=== PATIENT | male | born 1925 | race Caucasian/White ===

== ENCOUNTER 2016-04-30 10:12 | Inpatient (IN) | payer OTHER, MEDICARE ==
[~2016-04-30] VITALS: Ht 182.9 cm; Wt 91.0 kg
[2016-04-30] VITALS (7 sets, daily range): BP systolic 109–134; BP diastolic 57–74; PULSE 70–85; RESP 0–22; TEMP 97.4–98.9; O2SAT 94–98
[~2016-04-30 10:12] MED LIST: CEPH500C3 PO; COUM5TAB PO; DIPY75TA PO; ODANSETRON SL; RANI150T PO; SIMV20TA PO; TRAM50TA PO
[2016-04-30] MEDS ORDERED: SODIUM CHLOR 0.9% 1000 ML INJ 1,000 ML IV SCH (10:16)
[2016-04-30] MEDS ORDERED: PANTOPRAZOLE INJ 80 MG in SODIUM CHLORIDE 0.9% INJ 35 ML IV ONE (10:30)
[2016-04-30] MEDS ORDERED: SODIUM CHLORIDE 0.9% FLUSH 5 ML FLUSH IVF PRN ×3 (10:30)
--- NOTE | 2016-04-30 10:34 | PD ---
HPI Chief Complaint: GI Complaint Time Seen by Provider: 10:25 Travel History International Travel<30 days: No Contact w/Intl Traveler<30days: No Traveled to known affect area: No History of Present Illness HPI Patient is an 89-year-old male who was brought into the emergency department via EMS for evaluation of rectal bleeding. Per EMS report patient has had bright red blood in his stools for approximately the last 2 hours. Patient was brought in from home, there was noted to be in moderate amount of bright red blood in the toilet, patient also had visible blood on his genitals and buttocks. Patient denies any chest pain, shortness of breath, vomiting. He did report weakness and dizziness when he got up. Patient is a poor historian, he is on Coumadin. Son is in route to the hospital at this time. PFSH Past Medical History Hx Anticoagulant Therapy: Yes (Coumadin) Arthritis: Yes Cancer: No High Cholesterol: Yes Cerebrovascular Accident: Yes Diminished Hearing: Yes Endocrine: No GERD: Yes Genitourinary: Yes Hypertension: Yes Immune Disorder: No Implanted Vascular Access Dvce: No Kidney Stones: Yes Neurologic: Yes Psychiatric: No Reproductive: No Respiratory: No Past Surgical History Abdominal Surgery: Yes (APPI) Eye Surgery: Yes (LEFT EYE CATARACT EXTRACT) Genitourinary Surgery: Yes (OPEN RETRIEVAL RENAL CALC.) Joint Replacement: Yes (RIGHT KNEE ) Pacemaker: No Other Surgery: Yes Social History Alcohol Use: No Tobacco Use: No Substance Use: No Allergies-Medications (Allergen,Severity, Reaction): Coded Allergies: No Known Allergies (Unverified , 04/30/16) Reported Meds & Prescriptions Reported Meds & Active Scripts Active Review of Systems ROS Limitations: Hearing Impaired, Poor Historian Except as stated in HPI: all other systems reviewed are Neg Gastrointestinal: Positive: Hematochezia, No: Nausea, Vomiting, Abdominal Pain Neurologic: Positive: Weakness, Dizziness Physical Exam Narrative GENERAL: Well-developed, well-nourished, alert elderly male. Resting comfortably in no acute distress. SKIN: Warm and dry. Visible dried blood on genitals, buttocks, hand. No lesions, lacerations noted. Skin tear to right shoulder appears to be healing HEAD: Atraumatic. Normocephalic. EYES: Pupils equal and round. No scleral icterus. No injection or drainage. ENT: No nasal bleeding or discharge. Mucous membranes pink and moist. NECK: Trachea midline. No JVD. CARDIOVASCULAR: Regular rate and rhythm. No murmur appreciated. RESPIRATORY: No accessory muscle use. Clear to auscultation. Breath sounds equal bilaterally. GASTROINTESTINAL: Abdomen soft, non-tender, nondistended. Hepatic and splenic margins not palpable. Positive bowel sounds, no rebound, no guarding. MUSCULOSKELETAL: No obvious deformities. No clubbing. No cyanosis. No edema. NEUROLOGICAL: Awake and alert. Oriented to self and day and place. No obvious cranial nerve deficits. Motor grossly within normal limits. Normal speech. Hard of hearing PSYCHIATRIC: Appropriate mood and affect; insight and judgment impaired. Data Data Last Documented VS Vital Signs Date Time Temp Pulse Resp B/P Pulse Ox O2 Delivery O2 Flow Rate FiO2 04/30/16 10:23 94 Room Air 04/30/16 10:15 97.9 70 22 112/57 Orders Complete Blood Count With Diff (04/30/16 10:16) Comprehensive Metabolic Panel (04/30/16 10:16) Prothrombin Time / Inr (Pt) (04/30/16 10:16) Act Partial Throm Time (Ptt) (04/30/16 10:16) Type And Screen (04/30/16 10:16) Ecg Monitoring (04/30/16 10:16) Iv Access Insert/Monitor (04/30/16 10:16) Oximetry (04/30/16 10:16) Sodium Chlor 0.9% 1000 Ml Inj (Ns 1000 M (04/30/16 10:16) Sodium Chloride 0.9% Flush (Ns Flush) (04/30/16 10:30) Pantoprazole Inj (Protonix Inj) (04/30/16 10:30) Pantoprazole Inj (Protonix Inj) (04/30/16 10:30) Electrocardiogram (04/30/16 ) Sodium Chloride 0.9% Flush (Ns Flush) (04/30/16 10:30) Red Blood Cells (Rbc) (04/30/16 10:21) Fresh Frozen Plasma (Ffp) (04/30/16 10:21) Sodium Chloride 0.9% Flush (Ns Flush) (04/30/16 10:30) Phytonadione Inj (Vitamin K Inj) (04/30/16 11:45) Admit Order (Ed Use Only) (04/30/16 12:35) Place In Observation (04/30/16 12:35) Vital Signs (Adult) Q4H (04/30/16 12:35) Activity Oob Ad Ginna (04/30/16 12:35) Intake + Output TYLER.QSHIFT (04/30/16 12:35) Diet Clear Liquid (04/30/16 Lunch) Basic Metabolic Panel (Bmp) (05/01/16 06:00) Complete Blood Count With Diff (05/01/16 06:00) Scd Bilateral/Knee High TYLER.QSHIFT (04/30/16 12:35) Vital Signs (Adult) Q4H (04/30/16 12:35) Hgb & Hct (04/30/16 12:35) Hgb & Hct (05/01/16 00:35) Hgb & Hct (05/01/16 12:35) Hgb & Hct (05/02/16 00:35) Hgb & Hct (05/02/16 12:35) Consult Gastroenterology (04/30/16 12:35) Abo/Rh Blood Type (04/30/16 12:35) Labs Laboratory Tests Test 04/30/16 11:00 White Blood Count 11.8 TH/MM3 Red Blood Count 4.16 MIL/MM3 Hemoglobin 13.8 GM/DL Hematocrit 41.6 % Mean Corpuscular Volume 100.0 FL Mean Corpuscular Hemoglobin 33.2 PG Mean Corpuscular Hemoglobin 33.1 % Concent Red Cell Distribution Width 14.0 % Platelet Count 196 TH/MM3 Mean Platelet Volume 7.6 FL Neutrophils (%) (Auto) 78.6 % Lymphocytes (%) (Auto) 11.8 % Monocytes (%) (Auto) 9.4 % Eosinophils (%) (Auto) 0.1 % Basophils (%) (Auto) 0.1 % Neutrophils # (Auto) 9.3 TH/MM3 Lymphocytes # (Auto) 1.4 TH/MM3 Monocytes # (Auto) 1.1 TH/MM3 Eosinophils # (Auto) 0.0 TH/MM3 Basophils # (Auto) 0.0 TH/MM3 CBC Comment AUTO DIFF Differential Total Cells 100 Counted Neutrophils % (Manual) 75 % Band Neutrophils % 2 % Lymphocytes % 7 % Monocytes % 15 % Neutrophils # (Manual) 9.2 TH/MM3 Myelocytes 1 % Differential Comment FINAL DIFF MANUAL Platelet Estimate NORMAL Platelet Morphology Comment NORMAL Acanthocytes OCC Prothrombin Time 13.4 SEC Prothromb Time International 1.2 RATIO Ratio Activated Partial 20.4 SEC Thromboplast Time Sodium Level 138 MEQ/L Potassium Level 4.6 MEQ/L Chloride Level 109 MEQ/L Carbon Dioxide Level 18.3 MEQ/L Anion Gap 11 MEQ/L Blood Urea Nitrogen 38 MG/DL Creatinine 1.33 MG/DL Estimat Glomerular Filtration 51 ML/MIN Rate Random Glucose 143 MG/DL Calcium Level 8.5 MG/DL Total Bilirubin 0.4 MG/DL Aspartate Amino Transf 22 U/L (AST/SGOT) Alanine Aminotransferase 42 U/L (ALT/SGPT) Alkaline Phosphatase 61 U/L Total Protein 6.0 GM/DL Albumin 2.9 GM/DL Blood Type A POSITIVE Antibody Screen NEGATIVE Crossmatch Leukocyte-Reduced Red Blood Cells Blood Bank Comment MDM Medical Decision Making Medical Screen Exam Complete: Yes Emergency Medical Condition: Yes Medical Record Reviewed: Yes Interpretation(s) Vital Signs Date Time Temp Pulse Resp B/P Pulse Ox O2 Delivery O2 Flow Rate FiO2 04/30/16 10:23 94 Room Air 04/30/16 10:15 97.9 70 22 112/57 94 Differential Diagnosis GI bleed versus supratherapeutic INR versus hemorrhoids versus other Narrative Course Patient is an 89-year-old male brought in by home via EMS for evaluation of rectal bleeding. Apparently the bleeding started approximately 8 AM this morning, patient has had bright red blood in his stools, there was visible blood in the toilet as well as on the toilet seat and patient. Patient is alert , his vital signs are stable at this time. Labs and EKG ordered and pending. Patient placed on continuous cardiac rehabilitation program director, continuous pulse oximetry, IV access initiated. Patient given Protonix bolus and started on a Protonix drip. He was also given IV fluids 1 L. EKG shows sinus rhythm with a probable old inferior NH. Rate of 70. CBC shows mildly elevated white count with left shift, Hemoglobin is stable, INR is 1.2 subtherapeutic. BUN/creatinine are slightly elevated. Patient type and crossmatched. Due to oneal rectal bleeding, admission to observe patient is advisable, Dr. Escobedo accepted admission. Diagnosis Primary Impression: GI bleed Qualified Code: K62.5 - Gastrointestinal hemorrhage associated with anorectal source Additional Impression: Subtherapeutic international normalized ratio (INR) Admitting Information Admitting Physician Requests: Observation Condition: Stable Minna Huber Apr 30, 2016 10:34
[2016-04-30 11:23] LABS: AUTOMATED NEUTROPHIL # 9.3 TH/MM3 (1.8-7.7); BASOPHIL % 0.1 % (0.0-2.0); EOSINOPHIL % 0.1 % (0.0-4.0); HEMATOCRIT 41.6 % (39.0-51.0); HEMO FLAGS AUTO DIFF; LYMPH % 11.8 % (9.0-44.0); LYMPHOCYTE # 1.4 TH/MM3 (1.0-4.8); MEAN CORPUSCULAR HEMOGLOBIN 33.2 PG (27.0-34.0); MEAN CORPUSCULAR HGB CONC 33.1 % (32.0-36.0); MONO % 9.4 % (0.0-8.0); NEUT % 78.6 % (16.0-70.0); PLATELET COUNT 196 TH/MM3 (150-450); RED BLOOD COUNT 4.16 MIL/MM3 (4.50-5.90); WHITE BLOOD COUNT 11.8 TH/MM3 (4.0-11.0)
[2016-04-30] MEDS: PANTOPRAZOLE INJ 80 MG in SODIUM CHLORIDE 0.9% INJ 100 ML IV SCH ×2 (11:31→23:17)
[2016-04-30 11:32] LABS: INTERNATIONAL NORMALIZED RATIO 1.2 RATIO; PROTHROMBIN TIME - PATIENT 13.4 SEC (9.8-11.6)
[2016-04-30 11:33] LABS: APTT (PATIENT) 20.4 SEC (24.3-30.1)
[2016-04-30] MEDS ORDERED: PHYTONADIONE INJ 10 MG in SODIUM CHLORIDE 0.9% INJ 50 ML IV ONE (11:45)
[2016-04-30 11:53] LABS: BLOOD UREA NITROGEN 38 MG/DL (7-18); GLOMERULAR FILTRATION RATE 51 ML/MIN (>89)
[2016-04-30 11:54] LABS: ALKALINE PHOSPHATASE 61 U/L (45-117); ALT (GPT) 42 U/L (12-78); ANION GAP 11 MEQ/L (5-15); AST (GOT) 22 U/L (15-37); BICARBONATE 18.3 MEQ/L (21.0-32.0); CHLORIDE 109 MEQ/L (98-107); POTASSIUM 4.6 MEQ/L (3.5-5.1); SODIUM (NA) 138 MEQ/L (136-145); TOTAL BILIRUBIN ADULT 0.4 MG/DL (0.2-1.0)
[2016-04-30 11:55] LABS: ACANTHOCYTES OCC (NORMAL); BANDS 2 % (0-6); MYELOCYTES 1 % (0-0); NEUTROPHIL # MANUAL DIFF 9.2 TH/MM3 (1.8-7.7); PLATELET ESTIMATE SMEAR NORMAL (NORMAL); PLATELET MORPHOLOGY NORMAL (NORMAL); POLYS (SEG NEUTROPHILS) 75 % (16-70); SCAN/DIFF FINAL DIFF MANUAL; WBC DIFF SAMPLE 100
--- NOTE | 2016-04-30 12:32 | EKG ---
Date Performed: 04/30/2016 Time Performed: 10:18:49 PTAGE: 89 years EKG: Sinus rhythm INFERIOR MYOCARDIAL INFARCTION ABNORMAL ECG PREVIOUS TRACING : 04/21/2012 02.56 No significant change from previous tracing noted. DOCTOR: Bruce Schreiber Interpretating Date/Time 04/30/2016 12:32:07
--- NOTE | 2016-04-30 13:18 | PD ---
Data Data Last Documented VS Vital Signs Date Time Temp Pulse Resp B/P Pulse Ox O2 Delivery O2 Flow Rate FiO2 04/30/16 10:23 94 Room Air 04/30/16 10:15 97.9 70 22 112/57 Orders Complete Blood Count With Diff (04/30/16 10:16) Comprehensive Metabolic Panel (04/30/16 10:16) Prothrombin Time / Inr (Pt) (04/30/16 10:16) Act Partial Throm Time (Ptt) (04/30/16 10:16) Type And Screen (04/30/16 10:16) Ecg Monitoring (04/30/16 10:16) Iv Access Insert/Monitor (04/30/16 10:16) Oximetry (04/30/16 10:16) Sodium Chlor 0.9% 1000 Ml Inj (Ns 1000 M (04/30/16 10:16) Sodium Chloride 0.9% Flush (Ns Flush) (04/30/16 10:30) Pantoprazole Inj (Protonix Inj) (04/30/16 10:30) Pantoprazole Inj (Protonix Inj) (04/30/16 10:30) Electrocardiogram (04/30/16 ) Sodium Chloride 0.9% Flush (Ns Flush) (04/30/16 10:30) Red Blood Cells (Rbc) (04/30/16 10:21) Fresh Frozen Plasma (Ffp) (04/30/16 10:21) Sodium Chloride 0.9% Flush (Ns Flush) (04/30/16 10:30) Phytonadione Inj (Vitamin K Inj) (04/30/16 11:45) Admit Order (Ed Use Only) (04/30/16 12:35) Place In Observation (04/30/16 12:35) Vital Signs (Adult) Q4H (04/30/16 12:35) Activity Oob Ad Ginna (04/30/16 12:35) Intake + Output TYLER.QSHIFT (04/30/16 12:35) Diet Clear Liquid (04/30/16 Lunch) Basic Metabolic Panel (Bmp) (05/01/16 06:00) Complete Blood Count With Diff (05/01/16 06:00) Scd Bilateral/Knee High TYLER.QSHIFT (04/30/16 12:35) Vital Signs (Adult) Q4H (04/30/16 12:35) Hgb & Hct (04/30/16 12:35) Hgb & Hct (05/01/16 00:35) Hgb & Hct (05/01/16 12:35) Hgb & Hct (05/02/16 00:35) Hgb & Hct (05/02/16 12:35) Consult Gastroenterology (04/30/16 12:35) Abo/Rh Blood Type (04/30/16 12:35) Labs Laboratory Tests Test 04/30/16 11:00 White Blood Count 11.8 TH/MM3 Red Blood Count 4.16 MIL/MM3 Hemoglobin 13.8 GM/DL Hematocrit 41.6 % Mean Corpuscular Volume 100.0 FL Mean Corpuscular Hemoglobin 33.2 PG Mean Corpuscular Hemoglobin 33.1 % Concent Red Cell Distribution Width 14.0 % Platelet Count 196 TH/MM3 Mean Platelet Volume 7.6 FL Neutrophils (%) (Auto) 78.6 % Lymphocytes (%) (Auto) 11.8 % Monocytes (%) (Auto) 9.4 % Eosinophils (%) (Auto) 0.1 % Basophils (%) (Auto) 0.1 % Neutrophils # (Auto) 9.3 TH/MM3 Lymphocytes # (Auto) 1.4 TH/MM3 Monocytes # (Auto) 1.1 TH/MM3 Eosinophils # (Auto) 0.0 TH/MM3 Basophils # (Auto) 0.0 TH/MM3 CBC Comment AUTO DIFF Differential Total Cells 100 Counted Neutrophils % (Manual) 75 % Band Neutrophils % 2 % Lymphocytes % 7 % Monocytes % 15 % Neutrophils # (Manual) 9.2 TH/MM3 Myelocytes 1 % Differential Comment FINAL DIFF MANUAL Platelet Estimate NORMAL Platelet Morphology Comment NORMAL Acanthocytes OCC Prothrombin Time 13.4 SEC Prothromb Time International 1.2 RATIO Ratio Activated Partial 20.4 SEC Thromboplast Time Sodium Level 138 MEQ/L Potassium Level 4.6 MEQ/L Chloride Level 109 MEQ/L Carbon Dioxide Level 18.3 MEQ/L Anion Gap 11 MEQ/L Blood Urea Nitrogen 38 MG/DL Creatinine 1.33 MG/DL Estimat Glomerular Filtration 51 ML/MIN Rate Random Glucose 143 MG/DL Calcium Level 8.5 MG/DL Total Bilirubin 0.4 MG/DL Aspartate Amino Transf 22 U/L (AST/SGOT) Alanine Aminotransferase 42 U/L (ALT/SGPT) Alkaline Phosphatase 61 U/L Total Protein 6.0 GM/DL Albumin 2.9 GM/DL Blood Type A POSITIVE Antibody Screen NEGATIVE Crossmatch Leukocyte-Reduced Red Blood Cells Blood Bank Comment MDM Supervised Visit with ALLYSSA: Yes Narrative Course The history, exam, and medical decision-making in the associated midlevel provider note were completed with my assistance. I reviewed and agree with the findings presented. I attest that I had a [id number] encounter with the patient on the same day, and personally performed and documented my assessment and findings in the medical record. *My assessment and Findings: This is an 89-year-old male who presents to the emergency department with bright red blood per rectum that started this morning. He has dementia and is not a great historian. His vital signs are all reassuring. He is on Coumadin but his INR is only 1.2. Labs are reassuring. Patient was started on pantoprazole given some evidence of dried brownish material on his face which may be blood. He will be admitted for close observation and GI consultation. I don't think he requires blood at this time but he has been typed and crossed. Velvet Gilbert MD Apr 30, 2016 13:19
[2016-04-30] MEDS ORDERED: COUM2TAB PO (14:02)
[2016-04-30] MEDS ORDERED: COUM1TAB PO (14:02)
[2016-04-30] MEDS ORDERED: SIMV40TA PO (14:02)
[2016-04-30] MEDS ORDERED: OMEP40CA2 PO (14:02)
--- NOTE | 2016-04-30 14:39 | HHI.HP ---
[facility] Henrique Mccann MD Admission Diagnosis GI BLEED Diagnoses: Chief Complaint: Rectal bleeding Travel History International Travel<30 Days: No Contact w/Intl Traveler <30 Da: No Traveled to Known Affected Are: No History of Present Illness This is an 89-year-old male with history of arthritis, CVA on anticoagulation who presented to the hospital after he started having bright red stools today. There was so much bleeding at home which prompted the family to call EMS. Per patient, he probably lost about 6 cups of blood. He denies any diarrhea, abdominal pain, nausea, vomiting, chest pain, shortness of breath, fever or chills. He however had weakness and dizziness or lightheadedness when he gets up. Patient is a poor historian. Per patient, had a colonoscopy about 8 years ago, he does not know the results. Review of Systems ROS Limitations: Poor Historian Past Family Social History Past Medical History Osteoarthritis Degenerative joint disease Hypertension Hyperlipidemia Questionable history of TIA GERD Chronic renal insufficiency Past Surgical History Right knee arthroplasty Reported Medications Omeprazole 40 Mg Cap 80 Mg PO DAILY Coumadin (Warfarin) 1 Mg Tab 1 Mg PO DAILY Coumadin (Warfarin) 2 Mg Tab 2 Mg PO DAILY Simvastatin 40 Mg Tab 40 Mg PO HS Allergies: Coded Allergies: No Known Allergies (Unverified , 04/30/16) Family History No history of colon cancer in the family Social History Smokes a pipe about 1-2 times a day, drinks a can of beer every day. Physical Exam Vital Signs Vital Signs Date Time Temp Pulse Resp B/P Pulse Ox O2 Delivery O2 Flow Rate FiO2 04/30/16 13:30 74 20 115/63 96 Room Air 04/30/16 10:23 94 Room Air 04/30/16 10:15 97.9 70 22 112/57 94 Physical Exam GENERAL: Not in acute distress, well-nourished. HEAD: Atraumatic. Normocephalic. No temporal or scalp tenderness. EYES: PERRL, full EOMs, no jaundice, nonicteric, pink conjunctivae without injection, moist mucosa ENT: Nose without bleeding, purulent drainage.Airway patent. NECK: Trachea midline, no mass, no obvious thyromegaly. CARDIOVASCULAR: Regular rate and rhythm without murmurs, gallops, or rubs. RESPIRATORY: Clear to auscultation with normal respiratory effort. Breath sounds equal bilaterally. No use of accessory muscles of respiration. GASTROINTESTINAL: Abdomen soft, normal bowel sounds, non-tender, nondistended. No hepato-splenomegaly or palpable mass. No guarding. VASHTI and exam deferred. MUSCULOSKELETAL: Extremities without clubbing, cyanosis, or edema. INTEGUMENTARY: Warm and dry, no rash of generalized distribution. NEUROLOGICAL: Awake, alert, oriented 3. No obvious cranial nerve deficits. Moves all 4 extremities. Laboratory Laboratory Tests Test 04/30/16 11:00 White Blood Count 11.8 Red Blood Count 4.16 Hemoglobin 13.8 Hematocrit 41.6 Mean Corpuscular Volume 100.0 Mean Corpuscular Hemoglobin 33.2 Mean Corpuscular Hemoglobin 33.1 Concent Red Cell Distribution Width 14.0 Platelet Count 196 Mean Platelet Volume 7.6 Neutrophils (%) (Auto) 78.6 Lymphocytes (%) (Auto) 11.8 Monocytes (%) (Auto) 9.4 Eosinophils (%) (Auto) 0.1 Basophils (%) (Auto) 0.1 Neutrophils # (Auto) 9.3 Lymphocytes # (Auto) 1.4 Monocytes # (Auto) 1.1 Eosinophils # (Auto) 0.0 Basophils # (Auto) 0.0 CBC Comment AUTO DIFF Differential Total Cells 100 Counted Neutrophils % (Manual) 75 Band Neutrophils % 2 Lymphocytes % 7 Monocytes % 15 Neutrophils # (Manual) 9.2 Myelocytes 1 Differential Comment FINAL DIFF MANUAL Platelet Estimate NORMAL Platelet Morphology Comment NORMAL Acanthocytes OCC Prothrombin Time 13.4 Prothromb Time International 1.2 Ratio Activated Partial 20.4 Thromboplast Time Sodium Level 138 Potassium Level 4.6 Chloride Level 109 Carbon Dioxide Level 18.3 Anion Gap 11 Blood Urea Nitrogen 38 Creatinine 1.33 Estimat Glomerular Filtration 51 Rate Random Glucose 143 Calcium Level 8.5 Total Bilirubin 0.4 Aspartate Amino Transf 22 (AST/SGOT) Alanine Aminotransferase 42 (ALT/SGPT) Alkaline Phosphatase 61 Total Protein 6.0 Albumin 2.9 Blood Type A POSITIVE Antibody Screen NEGATIVE Crossmatch Leukocyte-Reduced Red Blood Cells Blood Bank Comment Result Diagram: 04/30/16 1100 04/30/16 1100 Assessment and Plan Problem List: (1) GI bleed ICD Code: K92.2 Status: Acute Assessment and Plan This is an 89-year-old male with history of CVA and arthritis on anticoagulation presenting with rectal bleeding Likely lower GI bleed- last colonoscopy was 8 years ago, previous records reviewed, likely lower GI bleed, continue intravenous Protonix for now, continue serial hemoglobin every 12 hours, hemoglobin stable at this point, start clear liquid diet, consult GI, not any NSAIDs. Transfuse as needed, type and screen. Hold Coumadin for now, INR is subtherapeutic, status post vitamin K. Dizziness and lightheadedness-likely orthostatic, check orthostatic blood pressure tomorrow, continue IVF for now. Leukocytosis - likely stress-induced secondary to neutrophil demargination vs hemoconcentration. Afebrile. No obvious source of infection. Monitor for now, cont IVF. Acute renal failure-could be secondary to relative hypovolemia 4/hypoxemia from bleed, monitor, IVF as above. DVT prophylaxis: SCDs, logical prophylaxis contraindicated. Problem Qualifiers (1) GI bleed: Qualified Code: K62.5 - Gastrointestinal hemorrhage associated with anorectal source Kelli Escobedo MD Apr 30, 2016 14:39
[2016-04-30 14:56] LABS: HEMATOCRIT 38.8 % (39.0-51.0); REVIEW FLAG FINAL
[2016-04-30] MEDS: SODIUM CHLOR 0.9% 1000 ML INJ 1,000 ML IV SCH (15:37)
--- NOTE | 2016-04-30 15:49 | PD.CONS ---
HPI History of Present Illness This is a 89 year old male with history of arthritis, CVA on anticoagulation who presented to the ED with complaints of acute bright red stools early this morning. States he was in his usual state of health up till today, when he noticed a significant amount of blood in the toilet. He subsequently had a total of 3 bloody stools. He denies any diarrhea, abdominal pain, nausea, vomiting,hematemesis, chest pain, shortness of breath, fever or chills. He reports weakness and dizziness or lightheadedness for long time. Patient is a poor historian. He denies ever having colonoscopy, however, told the attending he had a colonoscopy 8 years ago. . (Marti Pelletier) PFSH Past Medical History Osteoarthritis Degenerative joint disease Hypertension Hyperlipidemia Questionable history of TIA GERD Chronic renal insufficiency Past Surgical History Right knee arthroplasty (Marti Pelletier) Coded Allergies: No Known Allergies (Unverified , 04/30/16) Medications Current Medications Medications (Trade) Dose Ordered Sig/Andrew Route Start Time Stop Time Status Last Admin IV Flush 2 ml 2 ml UNSCH PRN IVF 04/30/16 10:30 (Protonix Inj/NS Inj) 100 ml @ 10 mls/hr Q10H IV 04/30/16 10:30 04/30/16 11:31 (NS Flush) 2 ml UNSCH PRN IVF 04/30/16 10:30 IV Flush 2 ml 2 ml UNSCH PRN IVF 04/30/16 10:30 (NS 1000 ml Inj) 1,000 ml @ 100 mls/hr Q10H IV 04/30/16 15:15 Family History No history of colon cancer in the family Social History Smokes a pipe about 1-2 times a day, drinks a can of beer every day. (Marti Pelletier) Review of Systems Constitutional: COMPLAINS OF: Dizziness, DENIES: Fever, Chills Endocrine: DENIES: Polyuria Eyes: DENIES: Double Vision Ears, nose, mouth, throat: DENIES: Hoarseness Respiratory: COMPLAINS OF: Shortness of breath Cardiovascular: DENIES: Lower Extremity Edema Gastrointestinal: COMPLAINS OF: Bloody stools, DENIES: Abdominal pain, Black stools, Constipation, Diarrhea, Nausea, Vomiting, Difficulty Swallowing, Anorexia, Odynophagia, Swelling of Abdomen, Heartburn, Hematemesis Genitourinary: DENIES: Hematuria Musculoskeletal: DENIES: Back pain Integumentary: DENIES: Jaundice Hematologic/lymphatic: COMPLAINS OF: Bruising Immunologic/allergic: DENIES: Eczema Neurologic: DENIES: Abnormal gait Psychiatric: DENIES: Anxiety (Marti Pelletier) GI Exam Vitals I&O Vital Signs Date Time Temp Pulse Resp B/P Pulse Ox O2 Delivery O2 Flow Rate FiO2 04/30/16 15:00 97.4 72 18 119/64 94 04/30/16 13:30 74 20 115/63 96 Room Air 04/30/16 10:23 94 Room Air 04/30/16 10:15 97.9 70 22 112/57 94 Laboratory Test 04/30/16 04/30/16 11:00 14:46 White Blood Count 11.8 TH/MM3 Red Blood Count 4.16 MIL/MM3 Hemoglobin 13.8 GM/DL 13.0 GM/DL Hematocrit 41.6 % 38.8 % Mean Corpuscular Volume 100.0 FL Mean Corpuscular Hemoglobin 33.2 PG Mean Corpuscular Hemoglobin 33.1 % Concent Red Cell Distribution Width 14.0 % Platelet Count 196 TH/MM3 Mean Platelet Volume 7.6 FL Neutrophils (%) (Auto) 78.6 % Lymphocytes (%) (Auto) 11.8 % Monocytes (%) (Auto) 9.4 % Eosinophils (%) (Auto) 0.1 % Basophils (%) (Auto) 0.1 % Neutrophils # (Auto) 9.3 TH/MM3 Lymphocytes # (Auto) 1.4 TH/MM3 Monocytes # (Auto) 1.1 TH/MM3 Eosinophils # (Auto) 0.0 TH/MM3 Basophils # (Auto) 0.0 TH/MM3 CBC Comment AUTO DIFF Differential Total Cells 100 Counted Neutrophils % (Manual) 75 % Band Neutrophils % 2 % Lymphocytes % 7 % Monocytes % 15 % Neutrophils # (Manual) 9.2 TH/MM3 Myelocytes 1 % Differential Comment FINAL DIFF MANUAL Platelet Estimate NORMAL Platelet Morphology Comment NORMAL Acanthocytes OCC Prothrombin Time 13.4 SEC Prothromb Time International 1.2 RATIO Ratio Activated Partial 20.4 SEC Thromboplast Time Sodium Level 138 MEQ/L Potassium Level 4.6 MEQ/L Chloride Level 109 MEQ/L Carbon Dioxide Level 18.3 MEQ/L Anion Gap 11 MEQ/L Blood Urea Nitrogen 38 MG/DL Creatinine 1.33 MG/DL Estimat Glomerular Filtration 51 ML/MIN Rate Random Glucose 143 MG/DL Calcium Level 8.5 MG/DL Total Bilirubin 0.4 MG/DL Aspartate Amino Transf 22 U/L (AST/SGOT) Alanine Aminotransferase 42 U/L (ALT/SGPT) Alkaline Phosphatase 61 U/L Total Protein 6.0 GM/DL Albumin 2.9 GM/DL Blood Type A POSITIVE Antibody Screen NEGATIVE Crossmatch Leukocyte-Reduced Red Blood Cells Blood Bank Comment Physical Examination HEENT: Pupils round and reactive to light; normocephalic; atraumatic; no jaundice. Throat is clear. NECK: Neck is supple, no JVD, no lymphadenopathy. CHEST: Chest is clear to auscultation and percussion. CARDIAC: Regular rate and rhythm with no murmur gallop or rubs. ABDOMEN: Soft, nondistended, nontender; no hepatosplenomegaly; bowel sounds are present in all four quadrants. EXTREMITIES: No clubbing, cyanosis, or edema. SKIN: ecchymotic; no jaundice. 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 (Marti Pelletier) Assessment and Plan Plan - Lower GI bleed- 3 bloody stools today, chronic use of Coumadin, this is on hold, hgb 13, PPI - Dizziness and lightheadedness- IV fluids per attending - Leukocytosis - likely stress-induced Afebrile. No obvious source of infection. - Acute renal failure-could be secondary to above Plan: - Clear liquids - [facility] NPO mn - Monitor hh - Transfuse as needed - Cont. PPI - Notify Gi for active bleed - Supportive care - Patient seen and examined by Dr. Phoenix and myself and this note is written on his behalf. (Marti Pelletier) Physician Comments Seen and examined, plan as above, will need Colonoscopy while INR subtherapeutic , further recommendations to follow . (Lilian Phoenix MD) Marti Pelletier Apr 30, 2016 15:49 Lilian Phoenix MD Apr 30, 2016 19:27
[2016-04-30] MEDS ORDERED: PEG (High)/E-LYTE SOLN 4000 ML BTL PO ONE (17:00)
[2016-04-30 18:38] LABS: REVIEW FLAG FINAL
[2016-05-01] VITALS (16 sets, daily range): BP systolic 89–131; BP diastolic 30–72; PULSE 79–90; RESP 16–23; TEMP 95.3–97.4; O2SAT 94–98
[2016-05-01 00:30] LABS: HEMATOCRIT 36.2 % (39.0-51.0); REVIEW FLAG FINAL
[2016-05-01] MEDS: SODIUM CHLOR 0.9% 1000 ML INJ 1,000 ML IV SCH ×2 (01:15→13:00)
[2016-05-01] MEDS: LACTATED RINGER'S 1000 ML IV SCH (02:45)
[2016-05-01] MEDS ORDERED: SODIUM CHLOR 0.9% 250 ML INJ 250 ML IV ONE (04:00)
[2016-05-01] MEDS ORDERED: FUROSEMIDE 20 MG/2 ML VIAL IV ONE (04:00)
[2016-05-01 04:37] LABS: AUTOMATED NEUTROPHIL # 6.5 TH/MM3 (1.8-7.7); BASOPHIL % 0.4 % (0.0-2.0); EOSINOPHIL # 0.1 TH/MM3 (0-0.4); EOSINOPHIL % 1.1 % (0.0-4.0); HEMATOCRIT 34.9 % (39.0-51.0); LYMPH % 26.3 % (9.0-44.0); LYMPHOCYTE # 2.9 TH/MM3 (1.0-4.8); MEAN CELL VOLUME 97.7 FL (80.0-100.0); MEAN CORPUSCULAR HEMOGLOBIN 33.2 PG (27.0-34.0); MONO % 13.2 % (0.0-8.0); PLATELET COUNT 219 TH/MM3 (150-450); RED BLOOD COUNT 3.58 MIL/MM3 (4.50-5.90); WHITE BLOOD COUNT 11.1 TH/MM3 (4.0-11.0)
[2016-05-01 04:38] LABS: HEMO FLAGS AUTO DIFF
[2016-05-01 04:59] LABS: BICARBONATE 24.3 MEQ/L (21.0-32.0)
[2016-05-01 05:27] LABS: SCAN/DIFF AUTO DIFF CONFIRMED
[2016-05-01] MEDS: PANTOPRAZOLE INJ 80 MG in SODIUM CHLORIDE 0.9% INJ 100 ML IV SCH ×2 (06:30→16:30)
--- NOTE | 2016-05-01 09:49 | HHI.PR ---
Subjective Remarks Follow-up for GI bleeding. I was paged by RN for massive rectal bleeding. Patient seen, there is a pull of clotted and fresh blood, more than 3 cups from his rectum. Patient is confused but oriented to self and person. Blood pressure systolic in the 130s, tachycardic, patient also had a presyncopal episode which resolved immediately. Patient just finished back red blood cells 1 unit. He denies any abdominal pain. Discussed with son, he'll be taken down to the GI lab emergently for colonoscopy. Per patient's son, patient is on warfarin for DVT 5 years ago after a right knee surgery. He is not aware of any hypercoagulable state. Objective Vitals Vital Signs Date Time Temp Pulse Resp B/P Pulse Ox O2 Delivery O2 Flow Rate FiO2 05/01/16 08:40 95.9 90 16 130/71 94 05/01/16 08:30 95.9 90 18 130/71 05/01/16 07:56 96.4 90 20 102/56 97 05/01/16 07:15 96.6 05/01/16 07:15 96.6 88 20 102/56 97 05/01/16 06:44 95.7 86 18 117/30 95 05/01/16 04:51 97.4 85 18 100/58 96 Automatic Cuff 05/01/16 04:22 95.6 80 20 106/63 98 05/01/16 03:52 95.9 86 18 110/53 97 05/01/16 00:00 97.4 79 18 125/68 96 04/30/16 22:03 98.9 74 18 134/74 98 04/30/16 17:01 85 04/30/16 16:58 73 0 124/65 109/61 04/30/16 15:00 97.4 72 18 119/64 94 04/30/16 13:30 74 20 115/63 96 Room Air 04/30/16 10:23 94 Room Air 04/30/16 10:15 97.9 70 22 112/57 94 I/O 04/30/16 04/30/16 04/30/16 05/01/16 05/01/16 05/01/16 07:00 15:00 23:00 07:00 15:00 23:00 Intake Total 1222 ml Balance 1222 ml Intake Oral 450 ml IV Total 579 ml Packed Cells 193 ml # Voids 7 # Bowel Movements 4 Result Diagram: 05/01/1641005/01/16410 Objective Remarks Not in distress, pale PERRL, pale conjunctiva. Nose without bleeding Supple neck, no masses or thyromegaly, trachea midline Tachycardic, regular rhythm, no murmurs. Clear to auscultation and symmetric bilaterally, normal respiratory effort. Normal bowel sounds, soft, non-tender, nondistended, no guarding. There is a huge pool of clotted and fresh red blood per rectum. Extremities without clubbing, cyanosis, or edema. No rash of generalized distribution. Skin is warm and dry. AAO x place, person, no cranial nerve deficits. No focal deficits but confused. A/P Problem List: (1) GI bleed ICD Code: K92.2 Status: Acute Assessment and Plan This is an 89-year-old male with history of CVA and arthritis on anticoagulation presenting with rectal bleeding Likely lower GI bleed- last colonoscopy was 8 years ago, previous records reviewed, likely lower GI bleed, continue intravenous Protonix for now, GI on board. Patient will be emergently taken down to GI lab for a colonoscopy because of profuse massive bleeding, status post vitamin K. Status post chest fusion 1 unit, transfuse again when patient returns. We'll give fresh frozen plasma. Stop Coumadin indefinitely. Dizziness and lightheadedness-likely orthostatic, check orthostatic blood pressure tomorrow, continue IVF for now. Leukocytosis - likely stress-induced secondary to neutrophil demargination vs hemoconcentration. Afebrile. No obvious source of infection. Monitor for now, cont IVF. Acute renal failure-could be secondary to relative hypovolemia/hypoxemia, resolved. DVT prophylaxis: SCDs, pharmacological prophylaxis contraindicated. Discussed with patient's son and RN. Aggregate critical care time was 35 minutes spent at bedside or in the hospital gtz. Time to perform other separately billable procedures was not included in the critical care time. My time did not include minutes spent treating any other patients simultaneously or on activities that did not directly contribute to the patient's treatment. The services I provided to this patient were to treat and/or prevent clinically significant deterioration that could result in: organ failure, , disability or imminent clinical deterioration in the patient's condition. I provided critical care services requiring my management, as noted below: chart data review, documentation time, medication orders and management, vital sign assessments/reviewing monitor data, ordering and reviewing lab tests, ordering and interpreting/reviewing x-rays and diagnostic studies, care of the patient and discussion with other physicians and caregivers as needed. Problem Qualifiers (1) GI bleed: Qualified Code: K62.5 - Gastrointestinal hemorrhage associated with anorectal source Kelli Escobedo MD May 01, 2016 09:49
[2016-05-01] MEDS ORDERED: PROPOFOL 200 MG/20 ML AMP IV ONE (09:50)
[2016-05-01 16:15] LABS: HEMATOCRIT 32.1 % (39.0-51.0); MEAN CELL VOLUME 96.3 FL (80.0-100.0); MEAN CORPUSCULAR HEMOGLOBIN 32.7 PG (27.0-34.0); PLATELET COUNT 164 TH/MM3 (150-450); RED BLOOD COUNT 3.33 MIL/MM3 (4.50-5.90); RED CELL DISTRIBUTION WIDTH 15.3 % (11.6-17.2); REVIEW FLAG FINAL; WHITE BLOOD COUNT 14.6 TH/MM3 (4.0-11.0)
[2016-05-01 23:39] LABS: HEMATOCRIT 26.3 % (39.0-51.0); REVIEW FLAG FINAL
[2016-05-02] VITALS (11 sets, daily range): BP systolic 92–124; BP diastolic 53–74; PULSE 90–103; RESP 17–22; TEMP 96.3–98.3; O2SAT 92–98
[2016-05-02] MEDS: PANTOPRAZOLE INJ 80 MG in SODIUM CHLORIDE 0.9% INJ 100 ML IV SCH ×3 (02:30→22:42)
[2016-05-02] MEDS: LACTATED RINGER'S 1000 ML IV SCH (02:45)
[2016-05-02] MEDS: SODIUM CHLOR 0.9% 1000 ML INJ 1,000 ML IV SCH ×3 (03:19→18:33)
[2016-05-02 06:34] LABS: HEMATOCRIT 23.9 % (39.0-51.0); MEAN CELL VOLUME 95.3 FL (80.0-100.0); MEAN CORPUSCULAR HEMOGLOBIN 33.4 PG (27.0-34.0); PLATELET COUNT 143 TH/MM3 (150-450); RED BLOOD COUNT 2.51 MIL/MM3 (4.50-5.90); RED CELL DISTRIBUTION WIDTH 14.9 % (11.6-17.2); REVIEW FLAG FINAL; WHITE BLOOD COUNT 9.7 TH/MM3 (4.0-11.0)
[2016-05-02 06:56] LABS: INTERNATIONAL NORMALIZED RATIO 1.1 RATIO; PROTHROMBIN TIME - PATIENT 12.3 SEC (9.8-11.6)
--- NOTE | 2016-05-02 11:06 | HHI.GIFU ---
Subjective Remarks Patient is resting in bed, accompanied by family, reportedly, he had some bloody stools yesterday and this morning, no nausea or vomiting or abd pain. ( Marti Pelletier) Objective Vitals I&O Vital Signs Date Time Temp Pulse Resp B/P Pulse Ox O2 Delivery O2 Flow Rate FiO2 05/02/16 08:00 97.2 91 20 113/55 94 05/02/16 00:00 98.3 103 19 92/53 98 05/01/16 20:00 96.9 87 18 105/54 95 05/01/16 16:00 96.2 88 20 110/56 96 05/01/16 14:53 95.8 85 22 107/58 98 05/01/16 14:15 95.8 85 23 107/58 98 05/01/16 14:10 95.7 86 18 114/59 94 05/01/16 14:00 95.7 86 20 114/59 94 05/01/16 12:00 95.3 86 16 131/72 94 I/O 05/01/16 05/01/16 05/01/16 05/02/16 05/02/16 05/02/16 07:00 15:00 23:00 07:00 15:00 23:00 Intake Total 1222 ml 560 ml 240 ml 240 ml Output Total 300 ml 500 ml 200 ml Balance 1222 ml 260 ml -260 ml 40 ml Intake Oral 450 ml 360 ml 240 ml 240 ml IV Total 579 ml 0 ml Packed Cells 193 ml Other 200 ml Output Urine Total 300 ml 500 ml 200 ml # Voids 7 3 # Bowel Movements 4 5 1 2 Laboratory Laboratory Tests Test 05/01/16 05/01/16 05/02/16 05/02/16 15:54 23:10 05:30 05:50 White Blood Count 14.6 9.7 Red Blood Count 3.33 2.51 Hemoglobin 10.9 9.2 8.4 Hematocrit 32.1 26.3 23.9 Mean Corpuscular Volume 96.3 95.3 Mean Corpuscular Hemoglobin 32.7 33.4 Mean Corpuscular Hemoglobin 34.0 35.0 Concent Red Cell Distribution Width 15.3 14.9 Platelet Count 164 143 Mean Platelet Volume 7.4 7.6 Prothrombin Time 12.3 Prothromb Time International 1.1 Ratio Physical Exam HEENT: Pupils round and reactive to light; normocephalic; atraumatic; no jaundice. Throat is clear. NECK: Neck is supple, no JVD, no lymphadenopathy. CHEST: Chest is clear to auscultation and percussion. CARDIAC: Regular rate and rhythm with no murmur gallop or rubs. ABDOMEN: Soft, nondistended, nontender; no hepatosplenomegaly; bowel sounds are present in all four quadrants. EXTREMITIES: No clubbing, cyanosis, or edema. SKIN: Normal; no rash; no jaundice. CHIEF WHEELAGE CLERK: No focal deficits; alert and oriented times three. (Marti Pelletier) Assessment and Plan Plan - Lower GI bleed- s/p colonoscopy on (05/01/16)----> Diverticulum in the sigmoid colon and descending colon, Medium sized flat polyp in the sigmoid, large flat polyp in the hepatic v flexure, significant amount of blood was found in the sigmoid, descending and transverse, most likely diverticular bleed. Patient cont. to have bleeding episodes, hgb today is 8.4 - Dizziness and lightheadedness- IV fluids per attending - Leukocytosis - Resolved, No obvious source of infection. - Acute renal failure- Improving, could be secondary to above Plan: - full liquids - Await bx - angio gram to JADA - stat hh - Transfuse as needed - Cont. PPI - Notify Gi for active bleed - Supportive care - Patient seen and examined by Dr. Phoenix and myself and this note is written on his behalf. (Marti Pelletier) Physician Comments Seen and examined, plan as above, will check Angio results. (Lilian Phoenix MD) Marti Pelletier May 02, 2016 11:06 Lilian Phoenix MD May 02, 2016 15:15
[2016-05-02 12:42] LABS: HEMATOCRIT 19.9 % (39.0-51.0)
[2016-05-02] MEDS ORDERED: SODIUM CHLOR 0.9% 250 ML INJ 250 ML IV ONE (13:15)
--- NOTE | 2016-05-02 13:27 | HHI.PR ---
Subjective Remarks Follow-up for GI bleeding Patient still having hematochezia and melena, hemoglobin dropped to 6.9. Not short of breath, no chest pain. Afebrile. Also with tea colored urine. Objective Vitals Vital Signs Date Time Temp Pulse Resp B/P Pulse Ox O2 Delivery O2 Flow Rate FiO2 05/02/16 08:00 97.2 91 20 113/55 94 05/02/16 00:00 98.3 103 19 92/53 98 05/01/16 20:00 96.9 87 18 105/54 95 05/01/16 16:00 96.2 88 20 110/56 96 05/01/16 14:53 95.8 85 22 107/58 98 05/01/16 14:15 95.8 85 23 107/58 98 05/01/16 14:10 95.7 86 18 114/59 94 05/01/16 14:00 95.7 86 20 114/59 94 I/O 05/01/16 05/01/16 05/01/16 05/02/16 05/02/16 05/02/16 07:00 15:00 23:00 07:00 15:00 23:00 Intake Total 1222 ml 560 ml 240 ml 240 ml Output Total 300 ml 500 ml 200 ml Balance 1222 ml 260 ml -260 ml 40 ml Intake Oral 450 ml 360 ml 240 ml 240 ml IV Total 579 ml 0 ml Packed Cells 193 ml Other 200 ml Output Urine Total 300 ml 500 ml 200 ml # Voids 7 3 # Bowel Movements 4 5 1 2 Result Diagram: 05/02/16 1208 05/01/16 0411 Objective Remarks Not in distress, pale PERRL, pale conjunctiva. Nose without bleeding Supple neck, no masses or thyromegaly, trachea midline Tachycardic, regular rhythm, no murmurs. Clear to auscultation and symmetric bilaterally, normal respiratory effort. Normal bowel sounds, soft, non-tender, nondistended, no guarding. Still with hematochezia and fresh blood per rectum. Extremities without clubbing, cyanosis, or edema. No rash of generalized distribution. Skin is warm and dry. AAO x place, person, no cranial nerve deficits. No focal deficits but confused. A/P Problem List: (1) GI bleed ICD Code: K92.2 Status: Acute Assessment and Plan This is an 89-year-old male with history of CVA and arthritis on anticoagulation presenting with rectal bleeding Likely lower GI bleed - last colonoscopy was 8 years ago, previous records reviewed, likely lower GI bleed, continue intravenous Protonix for now, GI on board. Status post colonoscopy, showed bleeding polyps, diverticulosis. Still having hematochezia and melena.For angiogram today, possible diverticular bleed. Hemoglobin 6.9, transfuse 2 more units of packed red blood cells. Tea-colored urine - send UA, recheck LFTs. Dizziness and lightheadedness-likely orthostatic, check orthostatic blood pressure tomorrow, continue IVF for now. Leukocytosis - likely stress-induced secondary to neutrophil demargination vs hemoconcentration. Afebrile. No obvious source of infection. Monitor for now, cont IVF. Acute renal failure-could be secondary to relative hypovolemia/hypoxemia, resolved. DVT prophylaxis: SCDs, pharmacological prophylaxis contraindicated. PT evaluation tomorrow. Discharge Planning SNF vs [facility] Problem Qualifiers (1) GI bleed: Qualified Code: K62.5 - Gastrointestinal hemorrhage associated with anorectal source Kelli Escobedo MD May 02, 2016 13:27
[2016-05-02] MEDS ORDERED: MIDAZOLAM HCL 5 MG/5 ML VIAL ONE (14:26)
[2016-05-02] MEDS ORDERED: fentaNYL CITRATE 250 MCG/5 ML AMP ONE (14:26)
--- NOTE | 2016-05-02 15:31 | PD.RAD ---
Post Procedure Progress Note Pre Procedure Diagnosis: (1) GI bleed Post Procedure Diagnosis: (1) GI bleed Procedure Date: May 02, 2016 Supervising Radiologist: Adrian Ortiz Proceduralist/Assist: Fernanda Borrego RT(R), Teetee White RT(R)() Anesthesia: Local, Analgesia, Conscious Sedation Plan of Activity Patient to Unit: ROPU Patient Condition: Good See PACS Report for procedural detail/treatment Vascular-Arterial Procedure Procedure 1 Procedure Site: Superior Mesenteric Artery (and JADA) Procedure(s): Angiogram Access Access Site(s): Right Femoral Artery Closure Site(s): Right vascular closure device Findings: No bleed identified in SMA or JADA territories Adrian Ortiz MD May 02, 2016 15:31
[2016-05-02] MEDS ORDERED: IODIXANOL 320 MG/ML 50 ML VIAL (for RAD SPEC) I-ARTERIAL ONE (15:39)
[2016-05-02 23:33] LABS: HEMATOCRIT 29.5 % (39.0-51.0); REVIEW FLAG FINAL
[2016-05-02 23:37] LABS: BLOOD, URINE TRACE (NEG); COMMENT (UR) CULT NOT INDICATED; CULTURE IF INDICATED CULT NOT INDICATED; GLUCOSE,URINE TRACE mg/dL (NEG); KETONE, URINE NEG (NEG); MUCUS URINE FEW /lpf (OCC); NITRITE,URINE NEG (NEG); SQUAMOUS EPITHELIAL CELL URINE <1 /hpf (0-5); URINE COLOR YELLOW (YELLW/STRAW)
[2016-05-03] VITALS (12 sets, daily range): BP systolic 100–144; BP diastolic 55–73; PULSE 83–102; RESP 16–22; TEMP 96.7–98.3; O2SAT 92–97
[2016-05-03] MEDS: LACTATED RINGER'S 1000 ML IV SCH (02:45)
[2016-05-03 05:27] LABS: HEMATOCRIT 26.3 % (39.0-51.0); REVIEW FLAG FINAL
[2016-05-03 05:50] LABS: BICARBONATE 21.2 MEQ/L (21.0-32.0); POTASSIUM 4.1 MEQ/L (3.5-5.1)
[2016-05-03 05:53] LABS: INDIRECT BILIRUBIN 0.8 MG/DL (0.0-0.8); TOTAL BILIRUBIN ADULT 1.2 MG/DL (0.2-1.0)
[2016-05-03] MEDS: SODIUM CHLOR 0.9% 1000 ML INJ 1,000 ML IV SCH ×2 (07:25→11:57)
[2016-05-03] MEDS: PANTOPRAZOLE INJ 80 MG in SODIUM CHLORIDE 0.9% INJ 100 ML IV SCH (08:57)
--- NOTE | 2016-05-03 11:03 | HHI.PR ---
Subjective Remarks Called into room by RN Patient just had a large episode of hematochezia denies nausea or abdominal pain denies dizziness denies cp/sob Objective Vitals Vital Signs Date Time Temp Pulse Resp B/P Pulse Ox O2 Delivery O2 Flow Rate FiO2 05/03/16 08:00 98.0 102 18 100/59 97 05/03/16 04:00 96.7 90 20 105/58 94 05/03/16 00:00 98.3 95 22 112/63 93 05/02/16 20:00 96.6 97 22 113/67 93 05/02/16 19:40 97.1 97 18 101/61 93 05/02/16 17:44 93 18 104/64 94 05/02/16 17:14 90 17 101/74 94 05/02/16 16:44 92 18 99/60 94 05/02/16 16:44 97.7 95 17 99/60 95 05/02/16 16:14 90 19 120/63 95 05/02/16 16:14 97.7 90 17 120/63 95 05/02/16 15:59 92 19 117/57 92 05/02/16 15:44 97.7 90 18 124/64 97 05/02/16 12:30 96.3 91 17 103/58 96 I/O 05/02/16 05/02/16 05/02/16 05/03/16 05/03/16 05/03/16 07:00 15:00 23:00 07:00 15:00 23:00 Intake Total 240 ml 1290 ml 912 ml 0 ml Output Total 200 ml 150 ml 225 ml Balance 40 ml 1140 ml 912 ml -225 ml Intake Oral 240 ml 700 ml 320 ml 0 ml IV Total 590 ml 592 ml Output Urine Total 200 ml 150 ml 225 ml # Voids 0 # Bowel Movements 2 3 1 1 Result Diagram: 05/03/16 0446 05/03/166 Objective Remarks GENERAL: This is a well-nourished, well-developed patient, in no apparent distress. SKIN: No rashes, ecchymoses or lesions. Cool and dry. Pale skin. HEAD: Atraumatic. Normocephalic. No temporal or scalp tenderness. EYES: Pupils equal round and reactive. Extraocular motions intact. No scleral icterus. No injection or drainage. ENT: Nose without bleeding, purulent drainage or septal hematoma. Throat without erythema, tonsillar hypertrophy or exudate. Uvula midline. Airway patent. NECK: Trachea midline. No JVD or lymphadenopathy. Supple, nontender, no meningeal signs. CARDIOVASCULAR: Regular rate and rhythm without murmurs, gallops, or rubs. RESPIRATORY: Clear to auscultation. Breath sounds equal bilaterally. No wheezes , rales, or rhonchi. GASTROINTESTINAL: Abdomen soft, non-tender, nondistended. No hepato-splenomegaly , or palpable masses. No guarding. Hyperactive bowel sounds. MUSCULOSKELETAL: Extremities without clubbing, cyanosis, or edema. No joint tenderness, effusion, or edema noted. No calf tenderness. Negative Homans sign bilaterally. NEUROLOGICAL: Awake and alert. Cranial nerves II through XII intact. Motor and sensory grossly within normal limits. Five out of 5 muscle strength in all muscle groups. Normal speech. hard of hearing. Procedures Colonoscopy on 05/01/16 - showed diverticulosis, hepatic flexure lesion, sigmoid polyp Abdominal angiogram on 05/02/16 which did not show any bleeding in the SMA, JADA territories. Medications and IVs Current Medications Medications (Trade) Dose Ordered Sig/Andrew Route Start Time Stop Time Status Last Admin IV Flush 2 ml 2 ml UNSCH PRN IVF 04/30/16 10:30 (Protonix Inj/NS Inj) 100 ml @ 10 mls/hr Q10H IV 04/30/16 10:30 05/03/16 08:57 (NS Flush) 2 ml UNSCH PRN IVF 04/30/16 10:30 IV Flush 2 ml 2 ml UNSCH PRN IVF 04/30/16 10:30 Sodium Chloride 1,000 ml @ 100 mls/hr Q10H IV 04/30/16 15:15 05/03/16 07:25 (Lr 1000 ml Inj) 1,000 ml @ 30 mls/hr Q24H IV 05/01/16 02:45 A/P Problem List: (1) GI bleed ICD Code: K92.2 Status: Acute Plan: This is an 89-year-old male with history of CVA and arthritis on chronic undergo ablation presenting with rectal bleeding. Likely lower GI bleed. Patient had colonoscopy 8 years ago. Patient initially treated with IV Protonix, GI consulted. Patient status post colonoscopy which showed bleeding polyps, diverticulosis. Patient had angiogram on 05/02 due to persistent melena and hematochezia which did not show any active bleeding from the SMA and JADA territories. Status post transfusion of 2 units of proper blood cells after hemoglobin was 6.9. Patient with active bleeding, I will transfuse 1 units of packed red blood cells now, and continue to monitor hemoglobin every 6 hours. Continue to monitor hemoglobin/hematocrit and transfuse when necessary for hemoglobin less than 9 if active bleeding or hemoglobin less than 7 if there is no active bleeding. Hemoglobin goal more than 9. Continue to monitor hemoglobin every 6 hours. Follow-up GI recommendations. - Made Don ontiveros aware of hematochezia. Place 2 large bore IV access - Discussed with RN Given that patient has gotten 2 units in the past and I will give a third one. I will give 2 g of IV calcium chloride and 1 unit of FFP. (2) Dizziness ICD Code: R42 Status: Acute Plan: Likely due to hypotension secondary to GI bleed. Patient has had hypotension with blood pressure of 99/60 on 05/02/16, continue IV fluids for now. Also continue to monitor vital signs. I will order an orthostatic blood pressure today. (3) Leukocytosis ICD Code: D72.829 Status: Acute Plan: Leukocytosis likely stress induced to be possibly due to no traveled to margination versus hemoconcentration. The patient has been afebrile without any obvious source of infection. WBC has trended down and would not 0.7 on 05/02/16. (4) BRITTNEY (acute kidney injury) ICD Code: N17.9 Status: Acute Plan: Patient initially with a creatinine of 1.33 and a GFR of 51. BRITTNEY have resolved after IV fluid administration, now with creatinine of 0.9. (5) Hyperglycemia ICD Code: R73.9 Status: Acute Plan: No previous history of diabetes. Check hemoglobin A1c. Place on SSI with insulin NovoLog and Accu-Cheks. (6) Hyperlipidemia ICD Code: E78.5 Status: Chronic Plan: Check fasting lipid profile. I will resume statin as soon as GI bleed has been controlled. (7) HTN (hypertension) ICD Code: I10 Status: Chronic Plan: As per history, the patient has had history of hypertension. Patient's blood pressure for now seems to be stable on the lower side. Continue IV fluids and continue to monitor vital signs. (8) Hypotension ICD Code: I95.9 Status: Acute Plan: Due to hypovolemia. Patient had decreased blood pressure 99/60 on . Continue IV fluids for now due to monitor vital signs. (9) H/O: CVA (cerebrovascular accident) ICD Code: Z86.73 Status: Chronic Plan: Patient has history of CVA and was on chronic anticoagulation with Coumadin. Hold Coumadin due to GI bleed. Assessment and Plan GI prophylaxis: Patient on Protonix drip. DVT prophylaxis: SCDs, chemotherapy prophylaxis contraindicated due to high bleeding risk. Discharge Planning If patient becomes hypotensive or unstable then will transfer to intensive care unit. Problem Qualifiers (1) GI bleed: Qualified Code: K62.5 - Gastrointestinal hemorrhage associated with anorectal source (2) Hypotension: Qualified Code: I95.9 - Hypotension, unspecified hypotension type Harvey Mohr MD May 03, 2016 11:03
[2016-05-03] MEDS ORDERED: SODIUM CHLOR 0.9% 250 ML INJ 250 ML IV ONE (11:15)
[2016-05-03] MEDS ORDERED: ACETAMINOPHEN 325 MG TAB PO PRN (11:15)
[2016-05-03] MEDS ORDERED: diphenhydrAMINE HCL 25 MG CAP PO PRN (11:15)
[2016-05-03] MEDS ORDERED: FUROSEMIDE 20 MG/2 ML VIAL IV ONE (11:30)
--- NOTE | 2016-05-03 12:18 | HHI.GIFU ---
Subjective Remarks Called to floor for active bleeding. Moderate to large amount of red blood with blood clots. Pt denies any nausea/vomiting. Denies abdominal pain. Nurse reports that he continued to have bleeding overnight and this episode this morning. (Nicolette Valderrama) Objective Vitals I&O Vital Signs Date Time Temp Pulse Resp B/P Pulse Ox O2 Delivery O2 Flow Rate FiO2 05/03/16 08:00 98.0 102 18 100/59 97 05/03/16 04:00 96.7 90 20 105/58 94 05/03/16 00:00 98.3 95 22 112/63 93 05/02/16 20:00 96.6 97 22 113/67 93 05/02/16 19:40 97.1 97 18 101/61 93 05/02/16 17:44 93 18 104/64 94 05/02/16 17:14 90 17 101/74 94 05/02/16 16:44 92 18 99/60 94 05/02/16 16:44 97.7 95 17 99/60 95 05/02/16 16:14 90 19 120/63 95 05/02/16 16:14 97.7 90 17 120/63 95 05/02/16 15:59 92 19 117/57 92 05/02/16 15:44 97.7 90 18 124/64 97 05/02/16 12:30 96.3 91 17 103/58 96 I/O 05/02/16 05/02/16 05/02/16 05/03/16 05/03/16 05/03/16 06:59 14:59 22:59 06:59 14:59 22:59 Intake Total 240 ml 1290 ml 912 ml 0 ml 423 ml Output Total 200 ml 150 ml 225 ml Balance 40 ml 1140 ml 912 ml -225 ml 423 ml Intake Oral 240 ml 700 ml 320 ml 0 ml IV Total 590 ml 592 ml 423 ml Output Urine Total 200 ml 150 ml 225 ml # Voids 0 # Bowel Movements 2 3 1 1 Laboratory Laboratory Tests Test 05/02/16 05/02/16 05/02/16 05/03/16 13:44 23:07 23:20 04:46 Blood Type A POSITIVE Crossmatch Leukocyte-Reduced Red Blood Cells Blood Bank Comment Hemoglobin 10.2 9.1 Hematocrit 29.5 26.3 Urine Color YELLOW Urine Turbidity CLEAR Urine pH 5.0 Urine Specific [place] GREATER THAN 1.050 Urine Protein TRACE Urine Glucose (UA) TRACE Urine Ketones NEG Urine Occult Blood TRACE Urine Nitrite NEG Urine Bilirubin NEG Urine Urobilinogen LESS THAN 2.0 Urine Leukocyte Esterase TRACE Urine RBC LESS THAN 1 Urine WBC 3 Urine Squamous Epithelial <1 Cells Urine Mucus FEW Microscopic Urinalysis Comment CULT NOT INDICATED Sodium Level 141 Potassium Level 4.1 Chloride Level 110 Carbon Dioxide Level 21.2 Anion Gap 10 Blood Urea Nitrogen 26 Creatinine 0.91 Estimat Glomerular Filtration 78 Rate Random Glucose 147 Calcium Level 7.5 Total Bilirubin 1.2 Direct Bilirubin 0.4 Indirect Bilirubin 0.8 Aspartate Amino Transf 9 (AST/SGOT) Alanine Aminotransferase 22 (ALT/SGPT) Alkaline Phosphatase 44 Total Protein 4.4 Albumin 2.2 Test 05/03/16 11:46 Blood Bank Comment Physical Exam HEENT: Normocephalic; atraumatic; no jaundice. CHEST: CTA CARDIAC: RRR ABDOMEN: Soft, nondistended, nontender; no hepatosplenomegaly; bowel sounds are present in all four quadrants. EXTREMITIES: No clubbing, cyanosis, or edema. SKIN: Multiple ecchymotic areas HUMAN RESOURCES DEPARTMENT SUPERVISOR: No focal deficits; alert and oriented times three. (Nicolette Valderrama [facility]) Assessment and Plan Plan ASSESSMENT: - Lower GI bleed- s/p colonoscopy on (05/01/16)----> Diverticulum in the sigmoid colon and descending colon, Medium sized flat polyp in the sigmoid, large flat polyp in the hepatic v flexure, significant amount of blood was found in the sigmoid, descending and transverse, most likely diverticular bleed. Pathology with multiple fragments of tubular adenoma, sigmoid colon tubular adenoma. Pt has continued to have intermittent rectal bleeding. Went for angiogram yesterday in IR (05/02/16)----> no bleeding identified in SMA or JADA territories. Called to floor for active bleeding. Moderate to large amount of red blood with blood clots. Pt denies any nausea/ vomiting/pain. Nurse reports that he continued to have bleeding overnight and this episode this morning. VSS 103/55, HR 102. No obvious distress. HH 9.1/26.3. INR 1.1. Stat Bleeding scan ordered. Stat HH. NPO for now. - Leukocytosis - Resolved, No obvious source of infection. - Acute renal failure- Improving, could be secondary to above Plan: - NPO for now - Stat Bleeding Scan - Stat H/H - Transfuse as needed - Change protonix gtt to BID dosing - Notify Gi for active bleed - Supportive care - Patient seen and examined by Dr. Phoenix and myself and this note is written on his behalf. (Nicolette Valderrama) Physician Comments Agree with the plan as above, will follow up with you. (Lilian Phoenix MD) Nicolette Valderrama May 03, 2016 12:18 Lilian Phoenix MD May 03, 2016 17:23
[2016-05-03] MEDS ORDERED: CALCIUM CHLORIDE INJ 2 GM in SODIUM CHLORIDE 0.9% INJ 100 ML IV ONE (13:00)
[2016-05-03 13:51] LABS: HEMOGLOBIN A1a 1.6 %; HEMOGLOBIN Ao 83.6 %; HEMOGLOBIN F 1.2 %; HEMOGLOBIN LA1C 2.3 %; HEMOGLOBIN P3 4.2 %
--- NOTE | 2016-05-03 15:21 | RADRPT ---
EXAM DATE/TIME: 05/03/2016 13:03 [place] COMPARISON: No previous studies available for comparison. INDICATIONS : Active GI bleed with large amounts of blood in stool. DOSE: 22 mCi Tc99m Ultratag labeled red blood cells IV IMAGIN hrs MEDICAL HISTORY : Hypertension. Hypercholesterolemia. GERD SURGICAL HISTORY : Total knee replacement, right. Appendectomy. Circumcision. ENCOUNTER: Initial ACUITY: 1 day PAIN SCALE: 0/10 LOCATION: GI bleed TECHNIQUE: Following the modified in vitro labeling of autologous red cells, dynamic continuous images were acqu ired for the specified interval. FINDINGS: BIODISTRIBUTION: There is a very good labeling of red cells without significant uptake in the gastric wall. There is good delineation of the blood pool of the spleen and abdominal vessels. BLEEDING: No episodes of active GI bleeding are observed during specified interval of continuous observation. CONCLUSION: Unremarkable GI bleeding scan. Ulisses Briscoe MD on May 03, 2016 at 15:17 Board Certified Radiologist. This report was verified electronically.
[2016-05-03] MEDS: PANTOPRAZOLE SODIUM 40 MG VIAL IV PUSH SCH (15:32)
--- NOTE | 2016-05-03 15:57 | RADRPT ---
EXAM DATE/TIME: 05/02/2016 14:05 [place] COMPARISON: No previous studies available for comparison. INDICATIONS : Patient is in need of a mesenteric angiogram for evaluation of GI bleed. MEDICAL HISTORY : History of diverticulosis, chronic renal insufficiency, HTN, TIA, hyperlipidemia, CHF, PAD, dyslipide emil. SURGICAL HISTORY : History of right knee arthroplasty, colonoscopy with biopsy. ENCOUNTER: Initial ACUITY: 2 days PAIN SCORE: 0/10 FLUORO TIME: 6.2 minutes ACCESS SITE: Right Femoral artery SEDATION TIME: 60 minutes CONTRAST: 1.) 120 cc Visipaque (iodixanol) MEDICATION(S): 1.) 1 mg midazolam (Versed) IV 2.) 50 mcg fentanyl (Sublimaze) IV DEVICE(S): 1.) Right common femoral artery 6Fr Angio-Seal PROCEDURE : 1. Ultrasound-guided puncture of the access site. 2. Angiography of the access site prior to closure device. 3. Conscious sedation with continuous EKG and Oximetry monitoring. 4. Percutaneous closure of the access site. 5. Angiography of the SMA 6. Angiography of the JADA The risks, benefits and alternatives to the procedure were explained and verbal and written consent w as obtained. The site was prepped in sterile fashion. Full sterile technique was used, including ca p, mask, sterile gloves and gown and a large sterile sheet. Hand hygiene and 2% chlorhexidine and/or betadine/alcohol prep was utilized per protocol for cutaneous antisepsis. The skin and subcutaneous tissues were infiltrated with local anesthetic solution. With ultrasound and fluoroscopic guidance the selected artery was punctured and a vascular sheath was placed. Angiography of the common femoral artery was performed for evaluation prior to percutaneous closure device placement. Flush catheter run was performed of the infrarenal aorta shows mild atherosclerotic irregularity with out aneurysmal disease. The JADA cannot be identified, however. Therefore, a lateral image was obtaine d which showed a far anterior takeoff of the JADA. Catheter was exchanged for a focal sheath used to s elect the ostium of the JADA. Spot images of the upper, mid and lower segments of the JADA showed some hyperemia in the region of the sigmoid but no findings of active hemorrhage. The catheter was then used to select the SMA. Again, selective angiography of the SMA did not show ac tive hemorrhage in this vascular distribution. Hemostasis was obtained with the prescribed medicated closure device. Conscious sedation was perform ed with the prescribed dosages and duration as above. EKG and oximetry remained stable throughout th e procedure. The patient was sent to post anesthesia recovery in stable condition. CONCLUSION: 1. Hyperemia in the sigmoid region of the JADA with no findings of active hemorrhage in either the JADA or SMA. 2. Mild atherosclerotic irregularity of the infrarenal abdominal aorta without aneurysmal disease. Adrian Ortiz MD on May 03, 2016 at 14:47 Board Certified Radiologist. This report was verified electronically.
[2016-05-03 18:52] LABS: HEMATOCRIT 23.1 % (39.0-51.0); MEAN CELL VOLUME 94.8 FL (80.0-100.0); MEAN CORPUSCULAR HEMOGLOBIN 32.5 PG (27.0-34.0); MEAN CORPUSCULAR HGB CONC 34.2 % (32.0-36.0); PLATELET COUNT 114 TH/MM3 (150-450); RED BLOOD COUNT 2.44 MIL/MM3 (4.50-5.90); RED CELL DISTRIBUTION WIDTH 16.4 % (11.6-17.2); REVIEW FLAG FINAL; WHITE BLOOD COUNT 18.2 TH/MM3 (4.0-11.0)
[2016-05-04] VITALS (8 sets, daily range): BP systolic 112–136; BP diastolic 55–63; PULSE 62–83; RESP 16–22; TEMP 96–98; O2SAT 92–98
[2016-05-04] MEDS: LACTATED RINGER'S 1000 ML IV SCH ×2 (01:35→23:46)
[2016-05-04] MEDS: PANTOPRAZOLE SODIUM 40 MG VIAL IV PUSH SCH ×3 (01:35→23:46)
[2016-05-04] MEDS: SODIUM CHLOR 0.9% 1000 ML INJ 1,000 ML IV SCH ×3 (01:36→17:21)
[2016-05-04 02:57] LABS: HEMATOCRIT 24.9 % (39.0-51.0); REVIEW FLAG FINAL
[2016-05-04 04:31] LABS: AUTOMATED NEUTROPHIL # 8.6 TH/MM3 (1.8-7.7); BASOPHIL % 0.2 % (0.0-2.0); EOSINOPHIL # 0.3 TH/MM3 (0-0.4); EOSINOPHIL % 2.2 % (0.0-4.0); HEMATOCRIT 24.7 % (39.0-51.0); HEMO FLAGS DIFF FINAL; LYMPH % 12.2 % (9.0-44.0); LYMPHOCYTE # 1.5 TH/MM3 (1.0-4.8); MEAN CELL VOLUME 89.9 FL (80.0-100.0); MEAN CORPUSCULAR HEMOGLOBIN 31.3 PG (27.0-34.0); MEAN CORPUSCULAR HGB CONC 34.8 % (32.0-36.0); MONO % 12.8 % (0.0-8.0); NEUT % 72.6 % (16.0-70.0); PLATELET COUNT 111 TH/MM3 (150-450); RED BLOOD COUNT 2.75 MIL/MM3 (4.50-5.90); RED CELL DISTRIBUTION WIDTH 18.6 % (11.6-17.2); WHITE BLOOD COUNT 11.9 TH/MM3 (4.0-11.0)
[2016-05-04 04:46] LABS: ALT (GPT) 19 U/L (12-78); ANION GAP 9 MEQ/L (5-15); AST (GOT) 10 U/L (15-37); BICARBONATE 24.6 MEQ/L (21.0-32.0); BLOOD UREA NITROGEN 25 MG/DL (7-18); CHLORIDE 109 MEQ/L (98-107); GLOMERULAR FILTRATION RATE 70 ML/MIN (>89); MAGNESIUM 1.6 MG/DL (1.5-2.5); POTASSIUM 3.9 MEQ/L (3.5-5.1); SODIUM (NA) 143 MEQ/L (136-145)
[2016-05-04 04:49] LABS: ALKALINE PHOSPHATASE 42 U/L (45-117); HDL CHOLESTEROL 31.6 MG/DL (40.0-60.0); LDL CHOLESTEROL 27 MG/DL (0-99); TOTAL BILIRUBIN ADULT 1.3 MG/DL (0.2-1.0)
--- NOTE | 2016-05-04 11:08 | HHI.PR ---
Subjective Remarks fu hematemesis. blood loss anemia Patient denies cp/sob denies nausea/vomiting as per RN had small amount of hematochezia last night but none today hemoglobin stable 8.8 --> 8.6 Objective Vitals Vital Signs Date Time Temp Pulse Resp B/P Pulse Ox O2 Delivery O2 Flow Rate FiO2 05/04/16 08:00 97.1 66 22 132/63 94 05/04/16 00:10 97.9 83 18 112/55 96 05/04/16 00:00 97.9 79 18 112/55 96 05/03/16 21:02 97.3 83 22 125/60 94 05/03/16 21:01 97.3 83 22 125/60 94 05/03/16 20:00 97.8 83 18 113/55 94 05/03/16 18:18 97.7 83 18 144/73 95 05/03/16 17:50 97.4 92 16 116/59 92 05/03/16 16:14 97.9 85 18 144/64 93 05/03/16 16:00 97.6 90 18 110/55 92 05/03/16 15:56 97.6 90 18 110/55 92 05/03/16 12:00 97.5 101 17 103/55 94 I/O 05/03/16 05/03/16 05/03/16 05/04/16 05/04/16 05/04/16 07:00 15:00 23:00 07:00 15:00 23:00 Intake Total 0 ml 423 ml 0 ml 0 ml 0 ml Output Total 225 ml 550 ml 400 ml 300 ml Balance -225 ml 423 ml -550 ml -400 ml -300 ml Intake Oral 0 ml 0 ml 0 ml 0 ml IV Total 423 ml Output Urine Total 225 ml 550 ml 400 ml 300 ml # Bowel Movements 1 1 0 Result Diagram: 05/04/16 0328 05/04/16 0328 Imaging Last Impressions GI Bleed Scan Nuclear Medicine 05/03/16 0000 Signed Impressions: Service Date/Time: April 13:03 - CONCLUSION: Unremarkable GI bleeding scan. Ulisses Briscoe MD Abdomen Arteriogram 05/02/16 0000 Signed Impressions: Service Date/Time: Monday, May 02, 2016 14:05 - CONCLUSION: 1. Hyperemia in the sigmoid region of the JADA with no findings of active hemorrhage in either the JADA or SMA. 2. Mild atherosclerotic irregularity of the infrarenal abdominal aorta without aneurysmal disease. Adrian Ortiz MD Objective Remarks GENERAL: This is a well-nourished, well-developed patient, in no apparent distress. SKIN: No rashes, ecchymoses or lesions. Cool and dry. Pale skin. HEAD: Atraumatic. Normocephalic. No temporal or scalp tenderness. EYES: Pupils equal round and reactive. Extraocular motions intact. No scleral icterus. No injection or drainage. ENT: Nose without bleeding, purulent drainage or septal hematoma. Throat without erythema, tonsillar hypertrophy or exudate. Uvula midline. Airway patent. NECK: Trachea midline. No JVD or lymphadenopathy. Supple, nontender, no meningeal signs. CARDIOVASCULAR: Regular rate and rhythm without murmurs, gallops, or rubs. RESPIRATORY: Clear to auscultation. Breath sounds equal bilaterally. No wheezes , rales, or rhonchi. GASTROINTESTINAL: Abdomen soft, non-tender, nondistended. No hepato-splenomegaly , or palpable masses. No guarding. Bowel sounds present and normoactive. MUSCULOSKELETAL: Extremities without clubbing, cyanosis, or edema. No joint tenderness, effusion, or edema noted. No calf tenderness. Negative Homans sign bilaterally. NEUROLOGICAL: Awake and alert. Cranial nerves II through XII intact. Motor and sensory grossly within normal limits. Five out of 5 muscle strength in all muscle groups. Normal speech. hard of hearing. Procedures Colonoscopy on 05/01/16 - showed diverticulosis, hepatic flexure lesion, sigmoid polyp Abdominal angiogram on 05/02/16 which did not show any bleeding in the SMA, JADA territories. Medications and IVs Current Medications Medications (Trade) Dose Ordered Sig/Andrew Route Start Time Stop Time Status Last Admin (NS Flush) 2 ml UNSCH PRN IVF 04/30/16 10:30 (NS Flush) 2 ml UNSCH PRN IVF 04/30/16 10:30 IV Flush 2 ml 2 ml UNSCH PRN IVF 04/30/16 10:30 Sodium Chloride 1,000 ml @ 100 mls/hr Q10H IV 04/30/16 15:15 05/04/16 07:56 (Lr 1000 ml Inj) 1,000 ml @ 30 mls/hr Q24H IV 05/01/16 02:45 (Protonix Inj) 40 mg Q12H IV PUSH 05/03/16 12:30 05/04/16 01:35 Urinary Catheter: No Vascular Central Line Catheter: No A/P Problem List: (1) GI bleed ICD Code: K92.2 Status: Acute (2) Dizziness ICD Code: R42 Status: Acute (3) Leukocytosis ICD Code: D72.829 Status: Acute (4) BRITTNEY (acute kidney injury) ICD Code: N17.9 Status: Acute (5) Hyperglycemia ICD Code: R73.9 Status: Acute (6) Hyperlipidemia ICD Code: E78.5 Status: Chronic (7) HTN (hypertension) ICD Code: I10 Status: Chronic (8) Hypotension ICD Code: I95.9 Status: Acute (9) H/O: CVA (cerebrovascular accident) ICD Code: Z86.73 Status: Chronic Assessment and Plan (1) GI bleed Plan: This is an 89-year-old male with history of CVA and arthritis on chronic undergo ablation presenting with rectal bleeding. Likely lower GI bleed. Patient had colonoscopy 8 years ago. Patient initially treated with IV Protonix, GI consulted. Patient status post colonoscopy which showed bleeding polyps, diverticulosis. Patient had angiogram on 05/02 due to persistent melena and hematochezia which did not show any active bleeding from the SMA and JADA territories. Status post transfusion of 2 units of proper blood cells after hemoglobin was 6.9. Patient still with active bleeding on 05/03 1 for bleeding scan which was unremarkable. Patient is status post fusion 1 unit of packed red blood cells with appropriate response of hemoglobin up to 8.8 and this morning 8.6. It seems that hemoglobin has been somewhat stable and as per RN report the patient has not had any more episodes of hematochezia this morning. Patient is also status post fusion of 1 unit of FFP and 2 g of IV calcium chloride. Follow-up GI recommendations, the patient might need a colorectal surgery consult for possible colostomy if the patient continues to bleed. No further hematochezia for now. Continue to monitor and follow up hemoglobin every 6 hours. (2) Dizziness Plan: Likely due to hypotension secondary to GI bleed. Patient has had hypotension with blood pressure of 99/60 on 05/02/16, treated with IV fluids. 05/04 dizziness resolved. Hypotension also resolved. (3) Leukocytosis Plan: Leukocytosis likely stress induced to be possibly due to no traveled to margination versus hemoconcentration. The patient has been afebrile without any obvious source of infection. WBC trending down. Continue to monitor CBC with differential. (4) BRITTNEY (acute kidney injury) Plan: Patient initially with a creatinine of 1.33 and a GFR of 51. BRITTNEY have resolved after IV fluid administration, now with creatinine of 0.9. Creatinine was up to 1. her one today. Continue to monitor BUN/creatinine and continue the fluids. (5) Hyperglycemia Plan: No previous history of diabetes. Hemoglobin A1c 5.9. Continue SSI with insulin NovoLog and Accu-Cheks. (6) Hyperlipidemia Plan: Check fasting lipid profile. I will resume statin as soon as GI bleed has been controlled. (7) HTN (hypertension) Plan: As per medical records, the patient has had history of hypertension. Patient's blood pressure though on 05/03. Better today. (8) Hypotension Plan: Due to hypovolemia. Patient had decreased blood pressure 99/60 on . Continue IV fluids for now due to monitor vital signs. 05/04 BP much improved. Continue IV fluids. (9) H/O: CVA (cerebrovascular accident) Plan: Patient has history of CVA and was on chronic anticoagulation with Coumadin. Hold Coumadin due to GI bleed. GI prophylaxis: Patient on Protonix drip. DVT prophylaxis: SCDs, chemotherapy prophylaxis contraindicated due to high bleeding risk. Discharge Planning If patient becomes hypotensive or unstable then will transfer to intensive care unit. Problem Qualifiers (1) GI bleed: Qualified Code: K62.5 - Gastrointestinal hemorrhage associated with anorectal source (2) Hypotension: Qualified Code: I95.9 - Hypotension, unspecified hypotension type Harvey Mohr MD May 04, 2016 11:08
[2016-05-04] MEDS ORDERED: SODIUM CHLOR 0.9% 250 ML INJ 250 ML IV ONE (12:00)
[2016-05-04] MEDS ORDERED: diphenhydrAMINE HCL 25 MG CAP PO PRN (12:00)
[2016-05-04] MEDS ORDERED: ACETAMINOPHEN 325 MG TAB PO PRN (12:00)
[2016-05-04 14:26] LABS: HEMATOCRIT 22.5 % (39.0-51.0); REVIEW FLAG FINAL
--- NOTE | 2016-05-04 15:51 | HHI.GIFU ---
Subjective Remarks Had several bowel movements with blood fresh and old mainly last night, non today. Objective Vitals I&O Vital Signs Date Time Temp Pulse Resp B/P Pulse Ox O2 Delivery O2 Flow Rate FiO2 05/04/16 14:49 96.0 66 16 114/57 98 05/04/16 14:46 96.0 70 16 118/58 92 05/04/16 11:45 97.0 72 18 136/63 92 05/04/16 08:00 97.1 66 22 132/63 94 05/04/16 00:10 97.9 83 18 112/55 96 05/04/16 00:00 97.9 79 18 112/55 96 05/03/16 21:02 97.3 83 22 125/60 94 05/03/16 21:01 97.3 83 22 125/60 94 05/03/16 20:00 97.8 83 18 113/55 94 05/03/16 18:18 97.7 83 18 144/73 95 05/03/16 17:50 97.4 92 16 116/59 92 05/03/16 16:14 97.9 85 18 144/64 93 05/03/16 16:00 97.6 90 18 110/55 92 05/03/16 15:56 97.6 90 18 110/55 92 I/O 05/03/16 05/03/16 05/03/16 05/04/16 05/04/16 05/04/16 07:00 15:00 23:00 07:00 15:00 23:00 Intake Total 0 ml 423 ml 0 ml 0 ml 0 ml Output Total 225 ml 550 ml 400 ml 800 ml Balance -225 ml 423 ml -550 ml -400 ml -800 ml Intake Oral 0 ml 0 ml 0 ml 0 ml IV Total 423 ml Output Urine Total 225 ml 550 ml 400 ml 500 ml Estimated Blood Loss 300 ml # Bowel Movements 1 1 0 Laboratory Laboratory Tests Test 05/03/16 05/03/16 05/04/16 05/04/16 18:29 18:37 02:38 03:28 Blood Type A POSITIVE Crossmatch Leukocyte-Reduced Red Blood Cells Blood Bank Comment White Blood Count 18.2 11.9 Red Blood Count 2.44 2.75 Hemoglobin 7.9 8.8 8.6 Hematocrit 23.1 24.9 24.7 Mean Corpuscular Volume 94.8 89.9 Mean Corpuscular Hemoglobin 32.5 31.3 Mean Corpuscular Hemoglobin 34.2 34.8 Concent Red Cell Distribution Width 16.4 18.6 Platelet Count 114 111 Mean Platelet Volume 7.9 8.0 Neutrophils (%) (Auto) 72.6 Lymphocytes (%) (Auto) 12.2 Monocytes (%) (Auto) 12.8 Eosinophils (%) (Auto) 2.2 Basophils (%) (Auto) 0.2 Neutrophils # (Auto) 8.6 Lymphocytes # (Auto) 1.5 Monocytes # (Auto) 1.5 Eosinophils # (Auto) 0.3 Basophils # (Auto) 0.0 CBC Comment DIFF FINAL Differential Comment Sodium Level 143 Potassium Level 3.9 Chloride Level 109 Carbon Dioxide Level 24.6 Anion Gap 9 Blood Urea Nitrogen 25 Creatinine 1.01 Estimat Glomerular Filtration 70 Rate Random Glucose 147 Calcium Level 8.0 Phosphorus Level 3.4 Magnesium Level 1.6 Total Bilirubin 1.3 Aspartate Amino Transf 10 (AST/SGOT) Alanine Aminotransferase 19 (ALT/SGPT) Alkaline Phosphatase 42 Total Protein 4.3 Albumin 2.1 Triglycerides Level 96 Cholesterol Level 78 LDL Cholesterol 27 HDL Cholesterol 31.6 Cholesterol/HDL Ratio 2.46 Test 05/04/16 05/04/16 11:56 14:00 Blood Type A POSITIVE Crossmatch Leukocyte-Reduced Red Blood Cells Blood Bank Comment Hemoglobin 7.9 Hematocrit 22.5 Physical Exam HEENT: Normocephalic; atraumatic; no jaundice. CHEST: CTA CARDIAC: RRR ABDOMEN: Soft, nondistended, nontender; no hepatosplenomegaly; bowel sounds are present in all four quadrants. EXTREMITIES: No clubbing, cyanosis, or edema. SKIN: Multiple ecchymotic areas CUT PRESSMAN: No focal deficits; alert and oriented times three. Assessment and Plan Plan ASSESSMENT: - Lower GI bleed- s/p colonoscopy on (05/01/16)----> Diverticulum in the sigmoid colon and descending colon,significant amount of blood was found in the sigmoid, descending and transverse, most likely diverticular bleed Pt has continued to have intermittent rectal bleeding. angiogram yesterday in IR (05/02/16)----> no bleeding identified, bleeding scans negative twice , no active bleeding now but if bleeding recur to consider CR surgery for Colectomy -. Medium sized flat polyp in the sigmoid, large flat polyp in the hepatic flexure. Pathology with multiple fragments of tubular adenoma, sigmoid colon tubular adenoma - Acute renal failure- Improving, could be secondary to above Plan: - Clear liquid diet - Follow H/H - Transfuse as needed - Change protonix gtt to BID dosing - Notify Gi for active bleed - CR surgery if bleeding persists - Supportive care . Lilian Phoenix MD May 04, 2016 15:51
[2016-05-05] VITALS (9 sets, daily range): BP systolic 101–130; BP diastolic 51–60; PULSE 73–88; RESP 16–20; TEMP 96–97.9; O2SAT 93–97
[2016-05-05] MEDS: SODIUM CHLOR 0.9% 1000 ML INJ 1,000 ML IV SCH ×2 (04:54→14:44)
--- NOTE | 2016-05-05 08:11 | HHI.PR ---
Subjective Remarks LGI Bleed 2-3 episodes of dark blood overnight, H/H pending Objective Vital Signs Date Time Temp Pulse Resp B/P Pulse Ox O2 Delivery O2 Flow Rate FiO2 05/05/16 00:00 96.0 76 20 106/52 96 05/04/16 20:00 96.0 62 19 122/58 95 05/04/16 16:00 96.8 78 20 116/55 95 05/04/16 14:49 96.0 66 16 114/57 98 05/04/16 14:46 96.0 70 16 118/58 92 05/04/16 11:45 97.0 72 18 136/63 92 I/O 05/04/16 05/04/16 05/04/16 05/05/16 05/05/16 05/05/16 07:00 15:00 23:00 07:00 15:00 23:00 Intake Total 0 ml 763 ml 0 ml 240 ml Output Total 400 ml 800 ml 600 ml 200 ml Balance -400 ml -37 ml -600 ml 40 ml Intake Oral 0 ml 0 ml 0 ml 240 ml IV Total 763 ml Output Urine Total 400 ml 500 ml 600 ml 200 ml Estimated Blood Loss 300 ml # Voids 1 1 # Bowel Movements 0 2 3 Result Diagram: 05/04/16 1400 05/04/16 0328 Objective Remarks Abdomen benign Assessment and Plan Assessment and Plan LGI Bleed - consult dictated Although initial bleed most likely diverticular, current bleeding could be either a recurrence of the initial problem, or bleeding from his polypectomy/ biopsy sites. As no definitive site has been identified, if surgery becomes necessary, the most appropriate procedure would be a subtotal colectomy. With his age this would be high risk. I will discuss further with medical team and his son. Janet Kc MD May 05, 2016 08:11
--- NOTE | 2016-05-05 09:32 | HHI.GIFU ---
Subjective Remarks Had two small bloody BMs overnight, but otherwise asymptomatic. Objective Vitals I&O Vital Signs Date Time Temp Pulse Resp B/P Pulse Ox O2 Delivery O2 Flow Rate FiO2 05/05/16 08:00 96.8 85 18 108/58 97 05/05/16 00:00 96.0 76 20 106/52 96 05/04/16 20:00 96.0 62 19 122/58 95 05/04/16 16:00 96.8 78 20 116/55 95 05/04/16 14:49 96.0 66 16 114/57 98 05/04/16 14:46 96.0 70 16 118/58 92 05/04/16 11:45 97.0 72 18 136/63 92 I/O 05/04/16 05/04/16 05/04/16 05/05/16 05/05/16 05/05/16 06:59 14:59 22:59 06:59 14:59 22:59 Intake Total 0 ml 763 ml 0 ml 240 ml Output Total 400 ml 800 ml 600 ml 200 ml Balance -400 ml -37 ml -600 ml 40 ml Intake Oral 0 ml 0 ml 0 ml 240 ml IV Total 763 ml Output Urine Total 400 ml 500 ml 600 ml 200 ml Estimated Blood Loss 300 ml # Voids 1 1 # Bowel Movements 0 2 3 Laboratory Laboratory Tests Test 05/04/16 05/04/16 11:56 14:00 Blood Type A POSITIVE Crossmatch Leukocyte-Reduced Red Blood Cells Blood Bank Comment Hemoglobin 7.9 Hematocrit 22.5 Physical Exam HEENT: Normocephalic; atraumatic; no jaundice. CHEST: CTA CARDIAC: RRR ABDOMEN: Soft, nondistended, nontender; no hepatosplenomegaly; bowel sounds are present in all four quadrants. EXTREMITIES: No clubbing, cyanosis, or edema. SKIN: Multiple ecchymotic areas DIGITAL INTERN: No focal deficits; alert and oriented times three. Assessment and Plan Plan ASSESSMENT: - Lower GI bleed- s/p colonoscopy on (05/01/16)----> Diverticulum in the sigmoid colon and descending colon,significant amount of blood was found in the sigmoid, descending and transverse, most likely diverticular bleed Pt has continued to have intermittent rectal bleeding. angiogram yesterday in IR (05/02/16)----> no bleeding identified, bleeding scans negative twice , no active bleeding now but if bleeding recur to consider CR surgery for Colectomy -. Medium sized flat polyp in the sigmoid, large flat polyp in the hepatic flexure. Pathology with multiple fragments of tubular adenoma, sigmoid colon tubular adenoma - Acute renal failure- Improving, could be secondary to above Plan: - Clear liquid diet - Follow H/H - Transfuse as needed - Change protonix gtt to BID dosing - Notify Gi for active bleed - CR surgery if bleeding persists - Supportive care . Lilian Phoenix MD May 05, 2016 09:31
--- NOTE | 2016-05-05 10:28 | MB ---
cc: HOMER CONTRERAS M.D. DATE OF CONSULTATION: 05/05/2016 REASON FOR CONSULTATION: Lower GI bleeding. HISTORY OF PRESENT ILLNESS The patient is an 89-year-old male who came to the hospital on the 30 of April, six days prior to this consultation. He came in with fairly profuse rectal bleeding. He does have a history of having been on Coumadin, for a possible history of transient ischemic attack. He is a very poor historian, and has no idea why he is on Coumadin. He denies however, any history of a TIA or stroke. He began having heavy bleeding, and came to the emergency room. He underwent tagged red blood cell scan and angiography, both of which were negative. He then underwent colonoscopy on the , with fresh blood noted in the distal transverse, descending, and sigmoid colon. He was also noted to have polyps at the hepatic flexure and the sigmoid, which were biopsied multiple times. He has continued to have intermittent bleeding. He has had a transfusion of 5 units of blood and two liters of fresh frozen plasma, during this hospitalization. On admission, his PT was 13.4, INR of 1.2 and PTT was 20.4. On initial evaluation in the emergency room, his hemoglobin was 13.8, dropped to petros of 6.9 on the and has settled out yesterday at 8.6 at 03:30 in the morning and 7.9 at 2 o'clock in the afternoon. The patient denies any abdominal pain. He denies any previous rectal bleeding. He does have some mild soreness in the anal area. He states his normal bowel movements are daily with soft but formed stool. He reports fairly good control. He denies any family history of colon or rectal cancer or polyps, but as noted before he is a poor historian. PAST MEDICAL HISTORY: 1. Hypertension 2. Gastroesophageal reflux disease. 3. Chronic renal insufficiency. 4. Possible history of TIA. 5. Osteoarthritis and degenerative joint disease PAST SURGICAL HISTORY Right knee arthroplasty. ALLERGIES NO KNOWN DRUG ALLERGIES. MEDICATIONS ON ADMISSION Included 1. Omeprazole. 2. Coumadin. 3. Simvastatin SOCIAL HISTORY The patient continues to smoke and has smoked throughout his life, he smokes a pipe three times per day and drinks one can of beer daily. PHYSICAL EXAMINATION: Physical exam reveals an alert male who appears comfortable. NEUROLOGIC: Neuro is grossly intact. SKIN: Skin is warm and dry. HEAD, EYES, EARS, NOSE, AND THROAT: Head is normocephalic, atraumatic. CARDIOVASCULAR SYSTEM: Regular rate. CHEST: The breathing is symmetric bilaterally and nonlabored. ABDOMEN: Soft, nontender, nondistended. EXTREMITIES: Reveal trace edema. ANUS: Anal exam patient is has large amounts of stool with dark red blood. LABORATORY FINDINGS: The laboratory work for today is not available as yet. IMPRESSION Lower GI bleed. The patient initially came in with what sounded like a diverticular bleed and has required 5 units of packed red blood cells. However, on his colonoscopy five days ago he had multiple biopsies of two different sessile polyps. It is difficult to know currently whether the bleeding is coming from his original diverticular bleed or if this is more related to his recent multiple biopsies. I discussed with the patient the possibly of resection. Unfortunately with no definitive source identified on any of the studies he would need a minimum a full left colectomy and more appropriately a subtotal colectomy, which would leave him with fairly poor bowel function in light of his age. In addition, in light of his age, he has a fairly high risk for surgery in total. He is not certain that he is willing to go forward with surgery. I believe, factoring in his recent biopsies 5 or 6 days ago, watching for another 24 hours may be the most appropriate course of action. I will discuss the situation further with his son when he is available later today, as well as his medical doctors. Thank you very much for this kind referral. MD GARTH Moe/lara /7:59 AM /9:41 AM TER[facility]
[2016-05-05] MEDS: PANTOPRAZOLE SODIUM 40 MG VIAL IV PUSH SCH (11:23)
[2016-05-05 13:26] LABS: BICARBONATE 17.1 MEQ/L (21.0-32.0); CALCIUM-PROTEIN CORRECTED 9.2 MG/DL (8.5-10.1); POTASSIUM 4.5 MEQ/L (3.5-5.1); TOTAL BILIRUBIN ADULT 1.3 MG/DL (0.2-1.0)
[2016-05-05 13:36] LABS: HEMATOCRIT 21.4 % (39.0-51.0); MEAN CORPUSCULAR HEMOGLOBIN 30.9 PG (27.0-34.0); MEAN CORPUSCULAR HGB CONC 33.6 % (32.0-36.0); PLATELET COUNT 126 TH/MM3 (150-450); RED BLOOD COUNT 2.33 MIL/MM3 (4.50-5.90); RED CELL DISTRIBUTION WIDTH 18.5 % (11.6-17.2); WHITE BLOOD COUNT 13.9 TH/MM3 (4.0-11.0)
[2016-05-05 13:38] LABS: HEMO FLAGS AUTO DIFF
[2016-05-05 14:08] LABS: CORRECTED NUCLEATED RBC 2 /100 WBC (0-0); EOSINOPHILS 1 % (0-4); METAMYELOCYTES 1 % (0-1); NEUTROPHIL # MANUAL DIFF 10.4 TH/MM3 (1.8-7.7); PLATELET ESTIMATE SMEAR LOW (NORMAL); PLATELET MORPHOLOGY NORMAL (NORMAL); POLYCHROMASIA 2.2 % (0.0-1.9); POLYS (SEG NEUTROPHILS) 74 % (16-70); SCAN/DIFF FINAL DIFF MANUAL; WBC DIFF SAMPLE 100
[2016-05-05] MEDS ORDERED: SODIUM CHLOR 0.9% 250 ML INJ 250 ML IV ONE (16:45)
[2016-05-05] MEDS ORDERED: diphenhydrAMINE HCL 25 MG CAP PO PRN (16:45)
[2016-05-05] MEDS ORDERED: ACETAMINOPHEN 325 MG TAB PO PRN (16:45)
[2016-05-05] MEDS ORDERED: FUROSEMIDE 20 MG/2 ML VIAL IV ONE (16:45)
--- NOTE | 2016-05-05 16:46 | HHI.PR ---
Subjective Remarks Patient still having hematochezia had 6 episodes today denies cp/sob denies abdominal pain denies nausea/vomiting vital signs stable Objective Vitals Vital Signs Date Time Temp Pulse Resp B/P Pulse Ox O2 Delivery O2 Flow Rate FiO2 05/05/16 16:00 97.5 83 18 104/53 96 05/05/16 12:00 96.3 88 18 106/55 93 05/05/16 08:00 96.8 85 18 108/58 97 05/05/16 00:00 96.0 76 20 106/52 96 05/04/16 20:00 96.0 62 19 122/58 95 I/O 05/04/16 05/04/16 05/04/16 05/05/16 05/05/16 05/05/16 07:00 15:00 23:00 07:00 15:00 23:00 Intake Total 0 ml 763 ml 0 ml 240 ml 2334 ml Output Total 400 ml 800 ml 600 ml 200 ml 4 ml Balance -400 ml -37 ml -600 ml 40 ml 2330 ml Intake Oral 0 ml 0 ml 0 ml 240 ml IV Total 763 ml 2334 ml Output Urine Total 400 ml 500 ml 600 ml 200 ml 4 ml Estimated Blood Loss 300 ml # Voids 1 1 # Bowel Movements 0 2 3 3 Result Diagram: 05/05/16 1237 05/05/16 1237 Imaging Last Impressions GI Bleed Scan Nuclear Medicine 05/03/16 0000 Signed Impressions: Service Date/Time: April 13:03 - CONCLUSION: Unremarkable GI bleeding scan. Ulisses Briscoe MD Abdomen Arteriogram 05/02/16 0000 Signed Impressions: Service Date/Time: Monday, May 02, 2016 14:05 - CONCLUSION: 1. Hyperemia in the sigmoid region of the JADA with no findings of active hemorrhage in either the JADA or SMA. 2. Mild atherosclerotic irregularity of the infrarenal abdominal aorta without aneurysmal disease. Adrian Ortiz MD Objective Remarks GENERAL: This is a well-nourished, well-developed patient, in no apparent distress. SKIN: No rashes, ecchymoses or lesions. Cool and dry. Pale skin. HEAD: Atraumatic. Normocephalic. No temporal or scalp tenderness. EYES: Pupils equal round and reactive. Extraocular motions intact. No scleral icterus. No injection or drainage. ENT: Nose without bleeding, purulent drainage or septal hematoma. Throat without erythema, tonsillar hypertrophy or exudate. Uvula midline. Airway patent. NECK: Trachea midline. No JVD or lymphadenopathy. Supple, nontender, no meningeal signs. CARDIOVASCULAR: Regular rate and rhythm without murmurs, gallops, or rubs. RESPIRATORY: Clear to auscultation. Breath sounds equal bilaterally. No wheezes , rales, or rhonchi. GASTROINTESTINAL: Abdomen soft, non-tender, nondistended. No hepato-splenomegaly , or palpable masses. No guarding. Bowel sounds present and normoactive. MUSCULOSKELETAL: Extremities without clubbing, cyanosis, or edema. No joint tenderness, effusion, or edema noted. No calf tenderness. Negative Homans sign bilaterally. NEUROLOGICAL: Awake and alert. Cranial nerves II through XII intact. Motor and sensory grossly within normal limits. Five out of 5 muscle strength in all muscle groups. Normal speech. hard of hearing. Procedures Colonoscopy on 05/01/16 - showed diverticulosis, hepatic flexure lesion, sigmoid polyp Abdominal angiogram on 05/02/16 which did not show any bleeding in the SMA, JADA territories. Medications and IVs Current Medications Medications (Trade) Dose Ordered Sig/Andrew Route Start Time Stop Time Status Last Admin (NS Flush) 2 ml UNSCH PRN IVF 04/30/16 10:30 (NS Flush) 2 ml UNSCH PRN IVF 04/30/16 10:30 IV Flush 2 ml 2 ml UNSCH PRN IVF 04/30/16 10:30 Sodium Chloride 1,000 ml @ 100 mls/hr Q10H IV 04/30/16 15:15 05/05/16 14:44 (Lr 1000 ml Inj) 1,000 ml @ 30 mls/hr Q24H IV 05/01/16 02:45 Pantoprazole Sodium 40 mg 40 mg Q12H IV PUSH 05/03/16 12:30 05/05/16 11:23 (NS 250 ml Inj) 250 ml @ 15 mls/hr ONCE ONCE IV 05/05/16 16:45 05/06/16 09:24 (Tylenol) 650 mg Q4H PRN PO 05/05/16 16:45 05/05/16 20:46 (Benadryl) 25 mg Q4H PRN PO 05/05/16 16:45 05/05/16 20:46 Urinary Catheter: No Vascular Central Line Catheter: No A/P Problem List: (1) GI bleed ICD Code: K92.2 Status: Acute (2) Dizziness ICD Code: R42 Status: Acute (3) Leukocytosis ICD Code: D72.829 Status: Acute (4) BRITTNEY (acute kidney injury) ICD Code: N17.9 Status: Acute (5) Hyperglycemia ICD Code: R73.9 Status: Acute (6) Hyperlipidemia ICD Code: E78.5 Status: Chronic (7) HTN (hypertension) ICD Code: I10 Status: Chronic (8) Hypotension ICD Code: I95.9 Status: Acute (9) H/O: CVA (cerebrovascular accident) ICD Code: Z86.73 Status: Chronic Assessment and Plan (1) GI bleed Plan: This is an 89-year-old male with history of CVA and arthritis on chronic undergo ablation presenting with rectal bleeding. Likely lower GI bleed. Patient had colonoscopy 8 years ago. Patient initially treated with IV Protonix, GI consulted. Patient status post colonoscopy which showed bleeding polyps, diverticulosis. Patient had angiogram on 05/02 due to persistent melena and hematochezia which did not show any active bleeding from the SMA and JADA territories. Status post transfusion of 2 units of proper blood cells after hemoglobin was 6.9. Patient still with active bleeding on 05/03 1 for bleeding scan which was unremarkable. Patient is status post fusion 1 unit of packed red blood cells with appropriate response of hemoglobin up to 8.8 and this morning 8.6. It seems that hemoglobin has been somewhat stable and as per RN report the patient has not had any more episodes of hematochezia this morning. Patient is also status post fusion of 1 unit of FFP and 2 g of IV calcium chloride. 05/05 patient evaluated by colorectal surgery. Patient will likely need a full colectomy. At this time patient does not want medical through with surgery and patient is at high risk. The plan is to wait and see if the patient would stop bleeding. Continue to monitor hemoglobin. Hemoglobin has been trending down on 07.2. Transfuse 2 units of packed red blood cells. (2) Dizziness Plan: Likely due to hypotension secondary to GI bleed. Patient has had hypotension with blood pressure of 99/60 on 05/02/16, treated with IV fluids. 05/04 dizziness resolved. Hypotension also resolved. (3) Leukocytosis Plan: Leukocytosis likely stress induced to be possibly due to no traveled to [place] versus hemoconcentration. The patient has been afebrile without any obvious source of infection. WBC trending down. Continue to monitor CBC with differential. 05/05 WBC trending up. Continue to monitor cc with differential. No signs of active infection. Likely secondary to stress due to active bleeding. (4) BRITTNEY (acute kidney injury) Plan: Patient initially with a creatinine of 1.33 and a GFR of 51. BRITTNEY have resolved after IV fluid administration, now with creatinine of 0.9. Resolved after IV fluid and nutrition. (5) Hyperglycemia Plan: No previous history of diabetes. Hemoglobin A1c 5.9. Continue SSI with insulin NovoLog and Accu-Cheks. (6) Hyperlipidemia Plan: Check fasting lipid profile. I will resume statin as soon as GI bleed has been controlled. (7) HTN (hypertension) Plan: As per medical records, the patient has had history of hypertension. Stable blood pressure. (8) Hypotension Plan: Due to hypovolemia. Patient had decreased blood pressure 99/60 on . Continue IV fluids for now due to monitor vital signs. 05/04 BP much improved. Continue IV fluids. (9) H/O: CVA (cerebrovascular accident) Plan: Patient has history of CVA and was on chronic anticoagulation with Coumadin. Hold Coumadin due to GI bleed. GI prophylaxis: Patient on Protonix drip. DVT prophylaxis: SCDs, chemotherapy prophylaxis contraindicated due to high bleeding risk. Discharge Planning If patient becomes hypotensive or unstable then will transfer to intensive care unit. Problem Qualifiers (1) GI bleed: Qualified Code: K62.5 - Gastrointestinal hemorrhage associated with anorectal source (2) Hypotension: Qualified Code: I95.9 - Hypotension, unspecified hypotension type Harvey Mohr MD May 05, 2016 16:46
[2016-05-06] MEDS: PANTOPRAZOLE SODIUM 40 MG VIAL IV PUSH SCH ×2 (00:27→12:36)
[2016-05-06] MEDS: LACTATED RINGER'S 1000 ML IV SCH (00:28)
[2016-05-06] MEDS: SODIUM CHLOR 0.9% 1000 ML INJ 1,000 ML IV SCH ×3 (00:28→20:32)
[2016-05-06 00:37] VITALS: BP 106/54; PULSE 78; RESP 20; TEMP 97.1; O2SAT 95
[2016-05-06 08:00] VITALS: BP 150/69; PULSE 78; RESP 17; TEMP 96.7; O2SAT 97
--- NOTE | 2016-05-06 11:01 | HHI.GIFU ---
Subjective Remarks No bleeding overnight and feeling better, discussed with son the findings and options, they don't want to consider colectomy option. Objective Vitals I&O Vital Signs Date Time Temp Pulse Resp B/P Pulse Ox O2 Delivery O2 Flow Rate FiO2 05/06/16 08:00 96.7 78 17 150/69 97 05/06/16 00:37 97.1 78 20 106/54 95 05/05/16 23:50 96.5 73 18 130/56 94 05/05/16 21:48 97.0 75 18 121/58 95 05/05/16 20:05 96.5 76 17 113/60 94 05/05/16 18:41 96.7 80 16 109/54 05/05/16 18:34 97.9 79 16 101/51 96 05/05/16 16:00 97.5 83 18 104/53 96 05/05/16 12:00 96.3 88 18 106/55 93 I/O 05/05/16 05/05/16 05/05/16 05/06/16 05/06/16 05/06/16 07:00 15:00 23:00 07:00 15:00 23:00 Intake Total 240 ml 2334 ml 1443 ml Output Total 200 ml 4 ml 940 ml Balance 40 ml 2330 ml 503 ml Intake Oral 240 ml IV Total 2334 ml 861 ml Packed Cells 582 ml Output Urine Total 200 ml 4 ml 940 ml # Voids 1 1 # Bowel Movements 3 3 1 0 Laboratory Laboratory Tests Test 05/05/16 05/05/16 05/06/16 12:37 17:29 02:25 White Blood Count 13.9 Red Blood Count 2.33 Hemoglobin 7.2 8.9 Hematocrit 21.4 Mean Corpuscular Volume 92.0 Mean Corpuscular Hemoglobin 30.9 Mean Corpuscular Hemoglobin 33.6 Concent Red Cell Distribution Width 18.5 Platelet Count 126 Mean Platelet Volume 8.6 Neutrophils (%) (Auto) Lymphocytes (%) (Auto) Monocytes (%) (Auto) Eosinophils (%) (Auto) Basophils (%) (Auto) Neutrophils # (Auto) Lymphocytes # (Auto) Monocytes # (Auto) Eosinophils # (Auto) Basophils # (Auto) CBC Comment AUTO DIFF Differential Total Cells 100 Counted Neutrophils % (Manual) 74 Lymphocytes % 16 Monocytes % 8 Eosinophils % 1 Neutrophils # (Manual) 10.4 Metamyelocytes 1 Nucleated Red Blood Cells 2 Differential Comment FINAL DIFF MANUAL Platelet Estimate LOW Platelet Morphology Comment NORMAL Polychromasia 2.2 Hematology Comments Sodium Level 145 Potassium Level 4.5 Chloride Level 115 Carbon Dioxide Level 17.1 Anion Gap 13 Blood Urea Nitrogen 24 Creatinine 0.94 Estimat Glomerular Filtration 76 Rate Random Glucose 136 Calcium Level 7.2 Protein Corrected Calcium 9.2 Total Bilirubin 1.3 Aspartate Amino Transf 22 (AST/SGOT) Alanine Aminotransferase 16 (ALT/SGPT) Alkaline Phosphatase 39 Total Protein 3.7 Albumin 1.8 Blood Type A POSITIVE Crossmatch Leukocyte-Reduced Red Blood Cells Blood Bank Comment Physical Exam HEENT: Normocephalic; atraumatic; no jaundice. CHEST: CTA CARDIAC: RRR ABDOMEN: Soft, nondistended, nontender; no hepatosplenomegaly; bowel sounds are present in all four quadrants. EXTREMITIES: No clubbing, cyanosis, or edema. SKIN: Multiple ecchymotic areas HAND KISS SETTER: No focal deficits; alert and oriented times three. Assessment and Plan Plan ASSESSMENT: - Lower GI bleed- s/p colonoscopy on (05/01/16)----> Diverticulum in the sigmoid colon and descending colon,significant amount of blood was found in the sigmoid, descending and transverse, most likely diverticular bleed Pt has continued to have intermittent rectal bleeding. angiogram yesterday in IR (05/02/16)----> no bleeding identified, bleeding scans negative twice , no active bleeding now but if bleeding recur to consider CR surgery for Colectomy -. Medium sized flat polyp in the sigmoid, large flat polyp in the hepatic flexure. Pathology with multiple fragments of tubular adenoma, sigmoid colon tubular adenoma - Acute renal failure- Improving, could be secondary to above Plan: - Full liquid diet today - Follow H/H - Transfuse as needed - Change protonix gtt to BID dosing - Notify Gi for active bleed - Supportive care . Lilian Phoenix MD May 06, 2016 11:01
--- NOTE | 2016-05-06 11:10 | HHI.PR ---
Subjective Remarks LGI Bleed no bleeding overnight Objective Vital Signs Date Time Temp Pulse Resp B/P Pulse Ox O2 Delivery O2 Flow Rate FiO2 05/06/16 08:00 96.7 78 17 150/69 97 05/06/16 00:37 97.1 78 20 106/54 95 05/05/16 23:50 96.5 73 18 130/56 94 05/05/16 21:48 97.0 75 18 121/58 95 05/05/16 20:05 96.5 76 17 113/60 94 05/05/16 18:41 96.7 80 16 109/54 05/05/16 18:34 97.9 79 16 101/51 96 05/05/16 16:00 97.5 83 18 104/53 96 05/05/16 12:00 96.3 88 18 106/55 93 I/O 05/05/16 05/05/16 05/05/16 05/06/16 05/06/16 05/06/16 07:00 15:00 23:00 07:00 15:00 23:00 Intake Total 240 ml 2334 ml 1443 ml Output Total 200 ml 4 ml 940 ml Balance 40 ml 2330 ml 503 ml Intake Oral 240 ml IV Total 2334 ml 861 ml Packed Cells 582 ml Output Urine Total 200 ml 4 ml 940 ml # Voids 1 1 # Bowel Movements 3 3 1 0 Result Diagram: 05/06/16 0225 05/05/16 1237 Objective Remarks Abdomen benign Assessment and Plan Assessment and Plan Hgb stable Will continue to follow but patient and son feel they do not want to pursue surgery. It appears any bleeding has stopped Janet Kc MD May 06, 2016 11:10
[2016-05-06 11:16] LABS: AUTOMATED NEUTROPHIL # 5.7 TH/MM3 (1.8-7.7); BASOPHIL # 0.1 TH/MM3 (0-0.2); BASOPHIL % 0.6 % (0.0-2.0); EOSINOPHIL # 0.5 TH/MM3 (0-0.4); EOSINOPHIL % 6.3 % (0.0-4.0); HEMATOCRIT 25.3 % (39.0-51.0); LYMPH % 14.6 % (9.0-44.0); LYMPHOCYTE # 1.3 TH/MM3 (1.0-4.8); MEAN CELL VOLUME 86.4 FL (80.0-100.0); MEAN CORPUSCULAR HEMOGLOBIN 29.1 PG (27.0-34.0); MEAN CORPUSCULAR HGB CONC 33.6 % (32.0-36.0); NEUT % 65.5 % (16.0-70.0); PLATELET COUNT 120 TH/MM3 (150-450); RED BLOOD COUNT 2.93 MIL/MM3 (4.50-5.90); RED CELL DISTRIBUTION WIDTH 18.9 % (11.6-17.2); WHITE BLOOD COUNT 8.6 TH/MM3 (4.0-11.0)
[2016-05-06 11:17] LABS: HEMO FLAGS AUTO DIFF
[2016-05-06 11:46] LABS: BICARBONATE 20.4 MEQ/L (21.0-32.0); CALCIUM-PROTEIN CORRECTED 9.2 MG/DL (8.5-10.1); POTASSIUM 3.3 MEQ/L (3.5-5.1); TOTAL BILIRUBIN ADULT 1.4 MG/DL (0.2-1.0)
[2016-05-06 11:49] LABS: BANDS 7 % (0-6); CORRECTED NUCLEATED RBC 1 /100 WBC (0-0); EOSINOPHILS 1 % (0-4); METAMYELOCYTES 1 % (0-1); MYELOCYTES 2 % (0-0); NEUTROPHIL # MANUAL DIFF 7.6 TH/MM3 (1.8-7.7); POLYS (SEG NEUTROPHILS) 78 % (16-70); WBC DIFF SAMPLE 100
[2016-05-06 11:50] LABS: PLATELET ESTIMATE SMEAR LOW (NORMAL); PLATELET MORPHOLOGY NORMAL (NORMAL); SCAN/DIFF FINAL DIFF MANUAL; TOXIC GRANULATION 1+ (NORMAL)
[2016-05-06 12:00] VITALS: BP 120/61; PULSE 69; RESP 16; TEMP 97; O2SAT 94
[2016-05-06 16:00] VITALS: BP 94/53; PULSE 84; RESP 17; TEMP 96; O2SAT 96
[2016-05-06 20:00] VITALS: BP 117/59; PULSE 89; RESP 17; TEMP 96.6; O2SAT 97
--- NOTE | 2016-05-06 21:12 | HHI.PR ---
Subjective Remarks deferred entry - patient seen at 11:30 am Patient denies any further hematochezia denies nausea/vomiting denies cp/sob stable vital signs Objective Vitals Vital Signs Date Time Temp Pulse Resp B/P Pulse Ox O2 Delivery O2 Flow Rate FiO2 05/06/16 16:00 96.0 84 17 94/53 96 05/06/16 12:00 97.0 69 16 120/61 94 05/06/16 08:00 96.7 78 17 150/69 97 05/06/16 00:37 97.1 78 20 106/54 95 05/05/16 23:50 96.5 73 18 130/56 94 05/05/16 21:48 97.0 75 18 121/58 95 I/O 05/05/16 05/05/16 05/05/16 05/06/16 05/06/16 05/06/16 07:00 15:00 23:00 07:00 15:00 23:00 Intake Total 240 ml 2334 ml 1443 ml 1538 ml Output Total 200 ml 4 ml 940 ml 350 ml Balance 40 ml 2330 ml 503 ml 1188 ml Intake Oral 240 ml 780 ml IV Total 2334 ml 861 ml 758 ml Packed Cells 582 ml Output Urine Total 200 ml 4 ml 940 ml 350 ml # Voids 1 1 # Bowel Movements 3 3 1 0 0 Result Diagram: 05/06/16 1812 05/06/16 1100 Imaging Last Impressions GI Bleed Scan Nuclear Medicine 05/03/16 0000 Signed Impressions: Service Date/Time: April 13:03 - CONCLUSION: Unremarkable GI bleeding scan. Ulisses Briscoe MD Abdomen Arteriogram 05/02/16 0000 Signed Impressions: Service Date/Time: Monday, May 02, 2016 14:05 - CONCLUSION: 1. Hyperemia in the sigmoid region of the JADA with no findings of active hemorrhage in either the JADA or SMA. 2. Mild atherosclerotic irregularity of the infrarenal abdominal aorta without aneurysmal disease. Adrian Ortiz MD Objective Remarks GENERAL: This is a well-nourished, well-developed patient, in no apparent distress. SKIN: No rashes, ecchymoses or lesions. Cool and dry. Pale skin. HEAD: Atraumatic. Normocephalic. No temporal or scalp tenderness. EYES: Pupils equal round and reactive. Extraocular motions intact. No scleral icterus. No injection or drainage. ENT: Nose without bleeding, purulent drainage or septal hematoma. Throat without erythema, tonsillar hypertrophy or exudate. Uvula midline. Airway patent. NECK: Trachea midline. No JVD or lymphadenopathy. Supple, nontender, no meningeal signs. CARDIOVASCULAR: Regular rate and rhythm without murmurs, gallops, or rubs. RESPIRATORY: Clear to auscultation. Breath sounds equal bilaterally. No wheezes , rales, or rhonchi. GASTROINTESTINAL: Abdomen soft, non-tender, nondistended. No hepato-splenomegaly , or palpable masses. No guarding. Bowel sounds present and normoactive. MUSCULOSKELETAL: Extremities without clubbing, cyanosis, or edema. No joint tenderness, effusion, or edema noted. No calf tenderness. Negative Homans sign bilaterally. NEUROLOGICAL: Awake and alert. Cranial nerves II through XII intact. Motor and sensory grossly within normal limits. Five out of 5 muscle strength in all muscle groups. Normal speech. hard of hearing. Procedures Colonoscopy on 05/01/16 - showed diverticulosis, hepatic flexure lesion, sigmoid polyp Abdominal angiogram on 05/02/16 which did not show any bleeding in the SMA, JADA territories. Medications and IVs Current Medications Medications (Trade) Dose Ordered Sig/Andrew Route Start Time Stop Time Status Last Admin (NS Flush) 2 ml UNSCH PRN IVF 04/30/16 10:30 (NS Flush) 2 ml UNSCH PRN IVF 04/30/16 10:30 IV Flush 2 ml 2 ml UNSCH PRN IVF 04/30/16 10:30 Sodium Chloride 1,000 ml @ 100 mls/hr Q10H IV 04/30/16 15:15 05/06/16 20:32 (Lr 1000 ml Inj) 1,000 ml @ 30 mls/hr Q24H IV 05/01/16 02:45 (Protonix Inj) 40 mg Q12H IV PUSH 05/03/16 12:30 05/06/16 12:36 A/P Problem List: (1) GI bleed ICD Code: K92.2 Status: Acute (2) Dizziness ICD Code: R42 Status: Acute (3) Leukocytosis ICD Code: D72.829 Status: Acute (4) BRITTNEY (acute kidney injury) ICD Code: N17.9 Status: Acute (5) Hyperglycemia ICD Code: R73.9 Status: Acute (6) Hyperlipidemia ICD Code: E78.5 Status: Chronic (7) HTN (hypertension) ICD Code: I10 Status: Chronic (8) Hypotension ICD Code: I95.9 Status: Acute (9) H/O: CVA (cerebrovascular accident) ICD Code: Z86.73 Status: Chronic Assessment and Plan (1) GI bleed Plan: This is an 89-year-old male with history of CVA and arthritis on chronic undergo ablation presenting with rectal bleeding. Likely lower GI bleed. Patient had colonoscopy 8 years ago. Patient initially treated with IV Protonix, GI consulted. Patient status post colonoscopy which showed bleeding polyps, diverticulosis. Patient had angiogram on 05/02 due to persistent melena and hematochezia which did not show any active bleeding from the SMA and JADA territories. Status post transfusion of 2 units of proper blood cells after hemoglobin was 6.9. Patient still with active bleeding on 05/03 1 for bleeding scan which was unremarkable. Patient is status post fusion 1 unit of packed red blood cells with appropriate response of hemoglobin up to 8.8 and this morning 8.6. It seems that hemoglobin has been somewhat stable and as per RN report the patient has not had any more episodes of hematochezia this morning. Patient is also status post fusion of 1 unit of FFP and 2 g of IV calcium chloride. 05/05 patient evaluated by colorectal surgery. Patient will likely need a full colectomy. At this time patient does not want medical through with surgery and patient is at high risk. The plan is to wait and see if the patient would stop bleeding. Continue to monitor hemoglobin. Hemoglobin has been trending down on 07.2. Transfuse 2 units of packed red blood cells. 05/06/16 No further Gi bleed continue to observe and monitor hemoglobin every 6 hours. (2) Dizziness Plan: Likely due to hypotension secondary to GI bleed. Patient has had hypotension with blood pressure of 99/60 on 05/02/16, treated with IV fluids. 05/04 dizziness resolved. Hypotension also resolved. (3) Leukocytosis Plan: Leukocytosis likely stress induced to be possibly due to no traveled to [facility] emergency department versus hemoconcentration. The patient has been afebrile without any obvious source of infection. WBC trending down. Continue to monitor CBC with differential. 05/05 WBC trending up. Continue to monitor cc with differential. No signs of active infection. Likely secondary to stress due to active bleeding. (4) BRITTNEY (acute kidney injury) Plan: Patient initially with a creatinine of 1.33 and a GFR of 51. BRITTNEY have resolved after IV fluid administration, now with creatinine of 0.9. Resolved after IV fluid and nutrition. (5) Hyperglycemia Plan: No previous history of diabetes. Hemoglobin A1c 5.9. Continue SSI with insulin NovoLog and Accu-Cheks. (6) Hyperlipidemia Plan: Check fasting lipid profile. I will resume statin as soon as GI bleed has been controlled. (7) HTN (hypertension) Plan: As per medical records, the patient has had history of hypertension. Stable blood pressure. (8) Hypotension Plan: Due to hypovolemia. Patient had decreased blood pressure 99/60 on . Continue IV fluids for now due to monitor vital signs. 05/04 BP much improved. Continue IV fluids. (9) H/O: CVA (cerebrovascular accident) Plan: Patient has history of CVA and was on chronic anticoagulation with Coumadin. Hold Coumadin due to GI bleed. GI prophylaxis: Patient on Protonix drip. DVT prophylaxis: SCDs, chemotherapy prophylaxis contraindicated due to high bleeding risk. Discharge Planning If patient becomes hypotensive or unstable then will transfer to intensive care unit. Problem Qualifiers (1) GI bleed: Qualified Code: K62.5 - Gastrointestinal hemorrhage associated with anorectal source (2) Hypotension: Qualified Code: I95.9 - Hypotension, unspecified hypotension type Harvey Mohr MD May 06, 2016 21:12
[2016-05-07] VITALS (11 sets, daily range): BP systolic 99–120; BP diastolic 46–81; PULSE 76–95; RESP 16–18; TEMP 96.2–98.7; O2SAT 93–98
[2016-05-07] MEDS: PANTOPRAZOLE SODIUM 40 MG VIAL IV PUSH SCH ×2 (00:54→14:32)
[2016-05-07] MEDS: LACTATED RINGER'S 1000 ML IV SCH (00:56)
[2016-05-07] MEDS: SODIUM CHLOR 0.9% 1000 ML INJ 1,000 ML IV SCH (05:24)
[2016-05-07 06:13] LABS: AUTOMATED NEUTROPHIL # 5.2 TH/MM3 (1.8-7.7); BASOPHIL % 0.4 % (0.0-2.0); EOSINOPHIL # 0.4 TH/MM3 (0-0.4); EOSINOPHIL % 4.9 % (0.0-4.0); HEMATOCRIT 21.7 % (39.0-51.0); LYMPH % 15.4 % (9.0-44.0); LYMPHOCYTE # 1.2 TH/MM3 (1.0-4.8); MEAN CELL VOLUME 88.2 FL (80.0-100.0); MEAN CORPUSCULAR HEMOGLOBIN 30.2 PG (27.0-34.0); MEAN CORPUSCULAR HGB CONC 34.3 % (32.0-36.0); NEUT % 67.3 % (16.0-70.0); PLATELET COUNT 112 TH/MM3 (150-450); RED BLOOD COUNT 2.46 MIL/MM3 (4.50-5.90); RED CELL DISTRIBUTION WIDTH 19.2 % (11.6-17.2); WHITE BLOOD COUNT 7.8 TH/MM3 (4.0-11.0)
[2016-05-07 06:14] LABS: HEMO FLAGS AUTO DIFF
[2016-05-07 06:45] LABS: BICARBONATE 21.9 MEQ/L (21.0-32.0); CALCIUM-PROTEIN CORRECTED 8.8 MG/DL (8.5-10.1); MAGNESIUM 1.5 MG/DL (1.5-2.5); POTASSIUM 3.5 MEQ/L (3.5-5.1)
[2016-05-07 08:46] LABS: BANDS 7 % (0-6); BASOPHILS 1 % (0-2); EOSINOPHILS 2 % (0-4); MYELOCYTES 1 % (0-0); NEUTROPHIL # MANUAL DIFF 5.8 TH/MM3 (1.8-7.7); POLYS (SEG NEUTROPHILS) 66 % (16-70); WBC DIFF SAMPLE 100
[2016-05-07 08:47] LABS: OVALOCYTES 1+ (NORMAL); PLATELET ESTIMATE SMEAR LOW (NORMAL); PLATELET MORPHOLOGY NORMAL (NORMAL); POLYCHROMASIA 2.9 % (0.0-1.9); SCAN/DIFF FINAL DIFF MANUAL
[2016-05-07] MEDS ORDERED: POTASSIUM CHLORIDE 10 MEQ CONTROLLED RELEASE TAB PO ONE (10:00)
--- NOTE | 2016-05-07 10:55 | HHI.GIFU ---
Subjective Remarks No bleeding today or last night per patient. Objective Vitals I&O Vital Signs Date Time Temp Pulse Resp B/P Pulse Ox O2 Delivery O2 Flow Rate FiO2 05/07/16 08:00 97.2 76 16 103/51 96 05/07/16 00:00 96.2 81 17 108/60 98 05/06/16 20:00 96.6 89 17 117/59 97 05/06/16 16:00 96.0 84 17 94/53 96 05/06/16 12:00 97.0 69 16 120/61 94 I/O 05/06/16 05/06/16 05/06/16 05/07/16 05/07/16 05/07/16 07:00 15:00 23:00 07:00 15:00 23:00 Intake Total 1443 ml 1538 ml 1585 ml 1034 ml Output Total 940 ml 350 ml 300 ml 350 ml Balance 503 ml 1188 ml 1285 ml 684 ml Intake Oral 780 ml 1020 ml 240 ml IV Total 861 ml 758 ml 565 ml 794 ml Packed Cells 582 ml Output Urine Total 940 ml 350 ml 300 ml 350 ml # Bowel Movements 0 0 Laboratory Laboratory Tests Test 05/06/16 05/06/16 05/07/16 11:00 18:12 05:26 White Blood Count 8.6 7.8 Red Blood Count 2.93 2.46 Hemoglobin 8.5 8.6 7.4 Hematocrit 25.3 21.7 Mean Corpuscular Volume 86.4 88.2 Mean Corpuscular Hemoglobin 29.1 30.2 Mean Corpuscular Hemoglobin 33.6 34.3 Concent Red Cell Distribution Width 18.9 19.2 Platelet Count 120 112 Mean Platelet Volume 7.3 7.6 Neutrophils (%) (Auto) 65.5 67.3 Lymphocytes (%) (Auto) 14.6 15.4 Monocytes (%) (Auto) 13.0 12.0 Eosinophils (%) (Auto) 6.3 4.9 Basophils (%) (Auto) 0.6 0.4 Neutrophils # (Auto) 5.7 5.2 Lymphocytes # (Auto) 1.3 1.2 Monocytes # (Auto) 1.1 0.9 Eosinophils # (Auto) 0.5 0.4 Basophils # (Auto) 0.1 0.0 CBC Comment AUTO DIFF AUTO DIFF Differential Total Cells 100 100 Counted Neutrophils % (Manual) 78 66 Band Neutrophils % 7 7 Lymphocytes % 6 15 Monocytes % 5 8 Eosinophils % 1 2 Neutrophils # (Manual) 7.6 5.8 Metamyelocytes 1 Myelocytes 2 1 Nucleated Red Blood Cells 1 Differential Comment FINAL DIFF FINAL DIFF MANUAL MANUAL Toxic Granulation 1+ Platelet Estimate LOW LOW Platelet Morphology Comment NORMAL NORMAL Polychromasia 3.0 2.9 Sodium Level 143 142 Potassium Level 3.3 3.5 Chloride Level 110 111 Carbon Dioxide Level 20.4 21.9 Anion Gap 13 9 Blood Urea Nitrogen 19 16 Creatinine 0.80 0.77 Estimat Glomerular Filtration 91 95 Rate Random Glucose 125 112 Calcium Level 7.4 7.0 Protein Corrected Calcium 9.2 8.8 Total Bilirubin 1.4 1.0 Aspartate Amino Transf 16 27 (AST/SGOT) Alanine Aminotransferase 20 18 (ALT/SGPT) Alkaline Phosphatase 48 46 Total Protein 4.1 4.0 Albumin 2.0 1.8 Basophils % 1 Ovalocytes 1+ Phosphorus Level 2.0 Magnesium Level 1.5 Physical Exam HEENT: Normocephalic; atraumatic; no jaundice. CHEST: CTA CARDIAC: RRR ABDOMEN: Soft, nondistended, nontender; no hepatosplenomegaly; bowel sounds are present in all four quadrants. EXTREMITIES: No clubbing, cyanosis, or edema. SKIN: Multiple ecchymotic areas RESEARCH LABORATORY TECHNICIAN: No focal deficits; alert and oriented times three. Assessment and Plan Plan ASSESSMENT: - Lower GI bleed- s/p colonoscopy on (05/01/16)----> Diverticulum in the sigmoid colon and descending colon,significant amount of blood was found in the sigmoid, descending and transverse, most likely diverticular bleed Pt has continued to have intermittent rectal bleeding. angiogram yesterday in IR (05/02/16)----> no bleeding identified, bleeding scans negative twice , no active bleeding now but if bleeding recur to consider CR surgery for Colectomy -. Medium sized flat polyp in the sigmoid, large flat polyp in the hepatic flexure. Pathology with multiple fragments of tubular adenoma, sigmoid colon tubular adenoma - Acute renal failure- Improving, could be secondary to above Plan: - Full liquid diet today - Follow H/H - Transfuse as needed - Protonix BID dosing - Notify Gi for active bleed - Supportive care . Lilian Phoenix MD May 07, 2016 10:55
--- NOTE | 2016-05-07 11:59 | HHI.PR ---
Subjective Remarks Fu GI bleed, acute post hemorrhagic anemia patient denies hematochezia, melena had episode of hypotension last night which resolved by itself denies abdominal pain/nausea/vomiting denies dizziness denies cp/sob hemoglobin dropped to 7.4 Objective Vitals Vital Signs Date Time Temp Pulse Resp B/P Pulse Ox O2 Delivery O2 Flow Rate FiO2 05/07/16 08:00 97.2 76 16 103/51 96 05/07/16 00:00 96.2 81 17 108/60 98 05/06/16 20:00 96.6 89 17 117/59 97 05/06/16 16:00 96.0 84 17 94/53 96 05/06/16 12:00 97.0 69 16 120/61 94 I/O 05/06/16 05/06/16 05/06/16 05/07/16 05/07/16 05/07/16 07:00 15:00 23:00 07:00 15:00 23:00 Intake Total 1443 ml 1538 ml 1585 ml 1034 ml Output Total 940 ml 350 ml 300 ml 350 ml Balance 503 ml 1188 ml 1285 ml 684 ml Intake Oral 780 ml 1020 ml 240 ml IV Total 861 ml 758 ml 565 ml 794 ml Packed Cells 582 ml Output Urine Total 940 ml 350 ml 300 ml 350 ml # Bowel Movements 0 0 Result Diagram: 05/07/16 0526 05/07/16 0526 Imaging Last Impressions GI Bleed Scan Nuclear Medicine 05/03/16 0000 Signed Impressions: Service Date/Time: April 13:03 - CONCLUSION: Unremarkable GI bleeding scan. Ulisses Briscoe MD Abdomen Arteriogram 05/02/16 0000 Signed Impressions: Service Date/Time: Monday, May 02, 2016 14:05 - CONCLUSION: 1. Hyperemia in the sigmoid region of the JADA with no findings of active hemorrhage in either the JADA or SMA. 2. Mild atherosclerotic irregularity of the infrarenal abdominal aorta without aneurysmal disease. Adrian Ortiz MD Objective Remarks GENERAL: This is a well-nourished, well-developed patient, in no apparent distress. SKIN: No rashes, ecchymoses or lesions. Cool and dry. Pale skin. HEAD: Atraumatic. Normocephalic. No temporal or scalp tenderness. EYES: Pupils equal round and reactive. Extraocular motions intact. No scleral icterus. No injection or drainage. ENT: Nose without bleeding, purulent drainage or septal hematoma. Throat without erythema, tonsillar hypertrophy or exudate. Uvula midline. Airway patent. NECK: Trachea midline. No JVD or lymphadenopathy. Supple, nontender, no meningeal signs. CARDIOVASCULAR: Regular rate and rhythm without murmurs, gallops, or rubs. RESPIRATORY: Clear to auscultation. Breath sounds equal bilaterally. No wheezes , rales, or rhonchi. GASTROINTESTINAL: Abdomen soft, non-tender, nondistended. No hepato-splenomegaly , or palpable masses. No guarding. Bowel sounds present and normoactive. MUSCULOSKELETAL: Extremities without clubbing, cyanosis, or edema. No joint tenderness, effusion, or edema noted. No calf tenderness. Negative Homans sign bilaterally. NEUROLOGICAL: Awake and alert. Cranial nerves II through XII intact. Motor and sensory grossly within normal limits. Five out of 5 muscle strength in all muscle groups. Normal speech. hard of hearing. Procedures Colonoscopy on 05/01/16 - showed diverticulosis, hepatic flexure lesion, sigmoid polyp Abdominal angiogram on 05/02/16 which did not show any bleeding in the SMA, JADA territories. Medications and IVs Last Impressions GI Bleed Scan Nuclear Medicine 05/03/16 0000 Signed Impressions: Service Date/Time: April 13:03 - CONCLUSION: Unremarkable GI bleeding scan. Ulisses Briscoe MD Abdomen Arteriogram 05/02/16 0000 Signed Impressions: Service Date/Time: Monday, May 02, 2016 14:05 - CONCLUSION: 1. Hyperemia in the sigmoid region of the JADA with no findings of active hemorrhage in either the JADA or SMA. 2. Mild atherosclerotic irregularity of the infrarenal abdominal aorta without aneurysmal disease. Adrian Ortiz MD Urinary Catheter: No Vascular Central Line Catheter: No A/P Problem List: (1) GI bleed ICD Code: K92.2 Status: Acute (2) Dizziness ICD Code: R42 Status: Acute (3) Leukocytosis ICD Code: D72.829 Status: Acute (4) BRITTNEY (acute kidney injury) ICD Code: N17.9 Status: Acute (5) Hyperglycemia ICD Code: R73.9 Status: Acute (6) Hyperlipidemia ICD Code: E78.5 Status: Chronic (7) HTN (hypertension) ICD Code: I10 Status: Chronic (8) Hypotension ICD Code: I95.9 Status: Acute (9) H/O: CVA (cerebrovascular accident) ICD Code: Z86.73 Status: Chronic Assessment and Plan (1) GI bleed Plan: This is an 89-year-old male with history of CVA and arthritis on chronic undergo ablation presenting with rectal bleeding. Likely lower GI bleed. Patient had colonoscopy 8 years ago. Patient initially treated with IV Protonix, GI consulted. Patient status post colonoscopy which showed bleeding polyps, diverticulosis. Patient had angiogram on 05/02 due to persistent melena and hematochezia which did not show any active bleeding from the SMA and JADA territories. Status post transfusion of 2 units of proper blood cells after hemoglobin was 6.9. Patient still with active bleeding on 05/03 1 for bleeding scan which was unremarkable. Patient is status post fusion 1 unit of packed red blood cells with appropriate response of hemoglobin up to 8.8 and this morning 8.6. It seems that hemoglobin has been somewhat stable and as per RN report the patient has not had any more episodes of hematochezia this morning. Patient is also status post fusion of 1 unit of FFP and 2 g of IV calcium chloride. 05/05 patient evaluated by colorectal surgery. Patient will likely need a full colectomy. At this time patient does not want medical through with surgery and patient is at high risk. The plan is to wait and see if the patient would stop bleeding. Continue to monitor hemoglobin. Hemoglobin has been trending down on 07.2. Transfuse 2 units of packed red blood cells. 05/06/16 No further Gi bleed continue to observe and monitor hemoglobin every 6 hours. 05/07/16 As per patient no further bleeding. Hemoglobin dropped to 7.4. I will transfuse 2 units of PRBC's and FFP. Continue to monitor hemoglobin. Patient on Full liquid diet, advance diet as per GI. (2) Dizziness Plan: Likely due to hypotension secondary to GI bleed. Patient has had hypotension with blood pressure of 99/60 on 05/02/16, treated with IV fluids. 05/04 dizziness resolved. Hypotension also resolved. (3) Leukocytosis Plan: Leukocytosis likely stress induced to be possibly due to no traveled to [facility] versus hemoconcentration. The patient has been afebrile without any obvious source of infection. WBC trending down. Continue to monitor CBC with differential. 05/05 WBC trending up. Continue to monitor cc with differential. No signs of active infection. Likely secondary to stress due to active bleeding. 05/07/16 Leukocytosis resolved. (4) BRITTNEY (acute kidney injury) Plan: Patient initially with a creatinine of 1.33 and a GFR of 51. BRITTNEY have resolved after IV fluid administration, now with creatinine of 0.9. Resolved after IV fluid and nutrition. (5) Hyperglycemia Plan: No previous history of diabetes. Hemoglobin A1c 5.9. Continue SSI with insulin NovoLog and Accu-Cheks. (6) Hyperlipidemia Plan: Check fasting lipid profile. I will resume statin as soon as GI bleed has been controlled. (7) HTN (hypertension) Plan: As per medical records, the patient has had history of hypertension. Stable blood pressure. (8) Hypotension Plan: Due to hypovolemia. Patient had decreased blood pressure 99/60 on . Continue IV fluids for now due to monitor vital signs. 05/04 BP much improved. Continue IV fluids. 05/07/16 Had self limited episode of hypotension last night. Will stop IV fluids since patient will get blood and FFP. (9) H/O: CVA (cerebrovascular accident) Plan: Patient has history of CVA and was on chronic anticoagulation with Coumadin. Hold Coumadin due to GI bleed. GI prophylaxis: Patient on Protonix drip. DVT prophylaxis: SCDs, chemotherapy prophylaxis contraindicated due to high bleeding risk. Discharge Planning If patient becomes hypotensive or unstable then will transfer to intensive care unit. Problem Qualifiers (1) GI bleed: Qualified Code: K62.5 - Gastrointestinal hemorrhage associated with anorectal source (2) Hypotension: Qualified Code: I95.9 - Hypotension, unspecified hypotension type Harvey Mohr MD May 07, 2016 11:59
[2016-05-07] MEDS ORDERED: diphenhydrAMINE HCL 25 MG CAP PO PRN (12:00)
[2016-05-07] MEDS ORDERED: SODIUM CHLOR 0.9% 250 ML INJ 250 ML IV ONE (12:00)
[2016-05-07] MEDS ORDERED: FUROSEMIDE 20 MG/2 ML VIAL IV ONE (12:00)
[2016-05-07] MEDS ORDERED: ACETAMINOPHEN 325 MG TAB PO PRN (12:00)
--- NOTE | 2016-05-07 13:04 | HHI.PR ---
Subjective Remarks LGI Bleed no further bleeding Objective Vital Signs Date Time Temp Pulse Resp B/P Pulse Ox O2 Delivery O2 Flow Rate FiO2 05/07/16 12:00 96.5 77 17 99/46 93 05/07/16 08:00 97.2 76 16 103/51 96 05/07/16 00:00 96.2 81 17 108/60 98 05/06/16 20:00 96.6 89 17 117/59 97 05/06/16 16:00 96.0 84 17 94/53 96 I/O 05/06/16 05/06/16 05/06/16 05/07/16 05/07/16 05/07/16 07:00 15:00 23:00 07:00 15:00 23:00 Intake Total 1443 ml 1538 ml 1585 ml 1034 ml Output Total 940 ml 350 ml 300 ml 350 ml Balance 503 ml 1188 ml 1285 ml 684 ml Intake Oral 780 ml 1020 ml 240 ml IV Total 861 ml 758 ml 565 ml 794 ml Packed Cells 582 ml Output Urine Total 940 ml 350 ml 300 ml 350 ml # Bowel Movements 0 0 Result Diagram: 05/07/16 0526 05/07/16 0526 Objective Remarks Abdomen benign Assessment and Plan Assessment and Plan Hgb dropped but I suspect delayed effect Agree with blood transfusion Try regular diet Janet Kc MD May 07, 2016 13:04
[2016-05-08] VITALS: BP 120/61; PULSE 79; RESP 18; TEMP 98.7; O2SAT 95
[2016-05-08] MEDS: PANTOPRAZOLE SODIUM 40 MG VIAL IV PUSH SCH ×2 (00:44→12:12)
[2016-05-08] MEDS: LACTATED RINGER'S 1000 ML IV SCH ×2 (02:45→19:22)
[2016-05-08 04:00] VITALS: BP 126/60; PULSE 72; RESP 20; TEMP 97.8; O2SAT 94
[2016-05-08 08:00] VITALS: BP 111/59; PULSE 71; RESP 18; TEMP 97; O2SAT 96
--- NOTE | 2016-05-08 09:55 | HHI.GIFU ---
Subjective Remarks Resting in bed. Tolerating regular diet. Denies any abdominal pain. Denies any further bleeding since last week. Has not moved his bowels today. (Nicolette Valderrama) Objective Vitals I&O Vital Signs Date Time Temp Pulse Resp B/P Pulse Ox O2 Delivery O2 Flow Rate FiO2 05/08/16 08:00 97.0 71 18 111/59 96 05/08/16 04:00 97.8 72 20 126/60 94 05/08/16 00:00 98.7 79 18 120/61 95 05/07/16 21:50 98.7 79 18 120/61 95 05/07/16 21:12 97.9 80 18 115/57 97 05/07/16 20:00 97.9 80 18 115/57 97 05/07/16 18:15 96.7 94 17 109/56 97 05/07/16 18:00 96.2 91 18 109/81 05/07/16 16:00 96.2 93 17 101/58 96 05/07/16 15:15 97.4 95 18 110/62 98 05/07/16 15:00 97.2 93 17 101/58 96 05/07/16 12:00 96.5 77 17 99/46 93 I/O 05/07/16 05/07/16 05/07/16 05/08/16 05/08/16 05/08/16 07:00 15:00 23:00 07:00 15:00 23:00 Intake Total 1034 ml 1320 ml 250 ml 240 ml 120 ml Output Total 350 ml 200 ml Balance 684 ml 1120 ml 250 ml 240 ml 120 ml Intake Oral 240 ml 1320 ml 240 ml 120 ml IV Total 794 ml 0 ml Packed Cells 250 ml Output Urine Total 350 ml 200 ml # Voids 4 # Bowel Movements 0 1 Laboratory Laboratory Tests Test 05/07/16 05/07/16 05/08/16 11:57 12:30 05:32 Blood Bank Comment Blood Type A POSITIVE Antibody Screen NEGATIVE Crossmatch Leukocyte-Reduced Red Blood Cells Hemoglobin 9.8 Imaging Last Impressions GI Bleed Scan Nuclear Medicine 05/03/16 0000 Signed Impressions: Service Date/Time: April 13:03 - CONCLUSION: Unremarkable GI bleeding scan. Ulisses Briscoe MD Abdomen Arteriogram 05/02/16 0000 Signed Impressions: Service Date/Time: Monday, May 02, 2016 14:05 - CONCLUSION: 1. Hyperemia in the sigmoid region of the JADA with no findings of active hemorrhage in either the JADA or SMA. 2. Mild atherosclerotic irregularity of the infrarenal abdominal aorta without aneurysmal disease. Adrian Ortiz MD Physical Exam HEENT: Normocephalic; atraumatic; no jaundice. CHEST: CTA CARDIAC: RRR ABDOMEN: Soft, nondistended, nontender; no hepatosplenomegaly; bowel sounds are present in all four quadrants. EXTREMITIES: No clubbing, cyanosis, or edema. SKIN: Multiple ecchymotic areas TURN MACHINE OPERATOR: No focal deficits; alert and oriented times three. (Nicolette Valderrama) Assessment and Plan Plan ASSESSMENT: - Lower GI bleed- s/p colonoscopy on (05/01/16)----> Diverticulum in the sigmoid colon and descending colon,significant amount of blood was found in the sigmoid, descending and transverse, most likely diverticular bleed. S/P Angiogram in IR (05/02/16)----> no bleeding identified, bleeding scans negative twice. CRS following. H/H stable at 9.8. States he has not had bleeding since last week. - Medium sized flat polyp in the sigmoid, large flat polyp in the hepatic flexure. Pathology with multiple fragments of tubular adenoma, sigmoid colon tubular adenoma - Acute renal failure- Improving, could be secondary to above Plan: - Regular diet - Follow H/H - Transfuse as needed - Protonix BID dosing - CRS - Notify Gi for active bleed - Supportive care - Further recommendations to follow based on results of above - Pt seen and myself and Dr. Malloy and this note is written on his behalf ( Nicolette Valderrama) Plan Patient was seen and examined, agree with above note. we will check labs, continue supportive care. (Jimbo Malloy MD) Nicolette Valderrama May 08, 2016 09:55 Jimbo Malloy MD May 08, 2016 21:41
--- NOTE | 2016-05-08 10:28 | HHI.PR ---
Subjective Remarks Patient denies any further episodes of hematochezia. As per RN no episodes today. Possibly an episodes of melena overnight Hemoglobin stable at 9.8 Status post transfusion of 2 units of packed red blood cells As per RN the patient has an ulcer in the right buttock Patient states he has been scratching his chest and perhaps caused a skin tear Objective Vitals Vital Signs Date Time Temp Pulse Resp B/P Pulse Ox O2 Delivery O2 Flow Rate FiO2 05/08/16 08:00 97.0 71 18 111/59 96 05/08/16 04:00 97.8 72 20 126/60 94 05/08/16 00:00 98.7 79 18 120/61 95 05/07/16 21:50 98.7 79 18 120/61 95 05/07/16 21:12 97.9 80 18 115/57 97 05/07/16 20:00 97.9 80 18 115/57 97 05/07/16 18:15 96.7 94 17 109/56 97 05/07/16 18:00 96.2 91 18 109/81 05/07/16 16:00 96.2 93 17 101/58 96 05/07/16 15:15 97.4 95 18 110/62 98 05/07/16 15:00 97.2 93 17 101/58 96 05/07/16 12:00 96.5 77 17 99/46 93 I/O 05/07/16 05/07/16 05/07/16 05/08/16 05/08/16 05/08/16 07:00 15:00 23:00 07:00 15:00 23:00 Intake Total 1034 ml 1320 ml 250 ml 240 ml 120 ml Output Total 350 ml 200 ml Balance 684 ml 1120 ml 250 ml 240 ml 120 ml Intake Oral 240 ml 1320 ml 240 ml 120 ml IV Total 794 ml 0 ml Packed Cells 250 ml Output Urine Total 350 ml 200 ml # Voids 4 # Bowel Movements 0 1 Result Diagram: 05/08/16 0532 05/07/16 0526 Imaging Last Impressions GI Bleed Scan Nuclear Medicine 05/03/16 0000 Signed Impressions: Service Date/Time: April 13:03 - CONCLUSION: Unremarkable GI bleeding scan. Ulisses Briscoe MD Abdomen Arteriogram 05/02/16 0000 Signed Impressions: Service Date/Time: Monday, May 02, 2016 14:05 - CONCLUSION: 1. Hyperemia in the sigmoid region of the JADA with no findings of active hemorrhage in either the JADA or SMA. 2. Mild atherosclerotic irregularity of the infrarenal abdominal aorta without aneurysmal disease. Adrian Ortiz MD Objective Remarks GENERAL: This is a well-nourished, well-developed patient, in no apparent distress. SKIN: No rashes, ecchymoses or lesions. Cool and dry. Pale skin. There is a skin tear on the right upper chest and also the shoulder which measures approximately 3 cm 1 cm. Also observed there is a 32 cm stage II ulcer in the left buttock. HEAD: Atraumatic. Normocephalic. No temporal or scalp tenderness. EYES: Pupils equal round and reactive. Extraocular motions intact. No scleral icterus. No injection or drainage. ENT: Nose without bleeding, purulent drainage or septal hematoma. Throat without erythema, tonsillar hypertrophy or exudate. Uvula midline. Airway patent. NECK: Trachea midline. No JVD or lymphadenopathy. Supple, nontender, no meningeal signs. CARDIOVASCULAR: Regular rate and rhythm without murmurs, gallops, or rubs. RESPIRATORY: Clear to auscultation. Breath sounds equal bilaterally. No wheezes , rales, or rhonchi. GASTROINTESTINAL: Abdomen soft, non-tender, nondistended. No hepato-splenomegaly , or palpable masses. No guarding. Bowel sounds present and normoactive. MUSCULOSKELETAL: Extremities without clubbing, cyanosis, or edema. No joint tenderness, effusion, or edema noted. No calf tenderness. Negative Homans sign bilaterally. NEUROLOGICAL: Awake and alert. Cranial nerves II through XII intact. Motor and sensory grossly within normal limits. Five out of 5 muscle strength in all muscle groups. Normal speech. hard of hearing. Procedures Colonoscopy on 05/01/16 - showed diverticulosis, hepatic flexure lesion, sigmoid polyp Abdominal angiogram on 05/02/16 which did not show any bleeding in the SMA, JADA territories. Medications and IVs Current Medications Medications (Trade) Dose Ordered Sig/Andrew Route Start Time Stop Time Status Last Admin (NS Flush) 2 ml UNSCH PRN IVF 04/30/16 10:30 (NS Flush) 2 ml UNSCH PRN IVF 04/30/16 10:30 IV Flush 2 ml 2 ml UNSCH PRN IVF 04/30/16 10:30 (Lr 1000 ml Inj) 1,000 ml @ 30 mls/hr Q24H IV 05/01/16 02:45 (Protonix Inj) 40 mg Q12H IV PUSH 05/03/16 12:30 05/08/16 00:44 Urinary Catheter: No Vascular Central Line Catheter: No A/P Problem List: (1) GI bleed ICD Code: K92.2 Status: Acute (2) Dizziness ICD Code: R42 Status: Acute (3) Leukocytosis ICD Code: D72.829 Status: Acute (4) BRITTNEY (acute kidney injury) ICD Code: N17.9 Status: Acute (5) Hyperglycemia ICD Code: R73.9 Status: Acute (6) Hyperlipidemia ICD Code: E78.5 Status: Chronic (7) HTN (hypertension) ICD Code: I10 Status: Chronic (8) Hypotension ICD Code: I95.9 Status: Acute (9) H/O: CVA (cerebrovascular accident) ICD Code: Z86.73 Status: Chronic Assessment and Plan (1) GI bleed Plan: This is an 89-year-old male with history of CVA and arthritis on chronic undergo ablation presenting with rectal bleeding. Likely lower GI bleed. Patient had colonoscopy 8 years ago. Patient initially treated with IV Protonix, GI consulted. Patient status post colonoscopy which showed bleeding polyps, diverticulosis. Patient had angiogram on 05/02 due to persistent melena and hematochezia which did not show any active bleeding from the SMA and JADA territories. Status post transfusion of 2 units of proper blood cells after hemoglobin was 6.9. Patient still with active bleeding on 05/03 1 for bleeding scan which was unremarkable. Patient is status post fusion 1 unit of packed red blood cells with appropriate response of hemoglobin up to 8.8 and this morning 8.6. It seems that hemoglobin has been somewhat stable and as per RN report the patient has not had any more episodes of hematochezia this morning. Patient is also status post fusion of 1 unit of FFP and 2 g of IV calcium chloride. 05/05 patient evaluated by colorectal surgery. Patient will likely need a full colectomy. At this time patient does not want medical through with surgery and patient is at high risk. The plan is to wait and see if the patient would stop bleeding. Continue to monitor hemoglobin. Hemoglobin has been trending down on 07.2. Transfuse 2 units of packed red blood cells. 05/06/16 No further Gi bleed continue to observe and monitor hemoglobin every 6 hours. 05/07/16 As per patient no further bleeding. Hemoglobin dropped to 7.4. I will transfuse 2 units of PRBC's and FFP. Continue to monitor hemoglobin. Patient on Full liquid diet, advance diet as per GI. 05/08/16 hemoglobin stable at 9.8 after transfusion of 2 units of packed blood cells. Continue to monitor hemoglobin. No further GI bleeding. Continue to monitor and observe. Patient on regular diet. Continue Protonix twice a day. (2) Dizziness Plan: Likely due to hypotension secondary to GI bleed. Patient has had hypotension with blood pressure of 99/60 on 05/02/16, treated with IV fluids. 05/04 dizziness resolved. Hypotension also resolved. (3) Leukocytosis Plan: Leukocytosis likely stress induced to be possibly due to no traveled to [place] versus hemoconcentration. The patient has been afebrile without any obvious source of infection. WBC trending down. Continue to monitor CBC with differential. 05/05 WBC trending up. Continue to monitor cc with differential. No signs of active infection. Likely secondary to stress due to active bleeding. 05/07/16 Leukocytosis resolved. (4) BRITTNEY (acute kidney injury) Plan: Patient initially with a creatinine of 1.33 and a GFR of 51. BRITTNEY have resolved after IV fluid administration, now with creatinine of 0.9. Resolved after IV fluid and nutrition. (5) Hyperglycemia Plan: No previous history of diabetes. Hemoglobin A1c 5.9. Continue SSI with insulin NovoLog and Accu-Cheks. (6) Hyperlipidemia Plan: Check fasting lipid profile. I will resume statin as soon as GI bleed has been controlled. (7) HTN (hypertension) Plan: As per medical records, the patient has had history of hypertension. Stable blood pressure. (8) Hypotension Plan: Due to hypovolemia. Patient had decreased blood pressure 99/60 on . Continue IV fluids for now due to monitor vital signs. 05/04 BP much improved. Continue IV fluids. 05/07/16 Had self limited episode of hypotension last night. Will stop IV fluids since patient will get blood and FFP. (9) H/O: CVA (cerebrovascular accident) Plan: Patient has history of CVA and was on chronic anticoagulation with Coumadin. Hold Coumadin due to GI bleed. The patient's Coumadin will be discontinued indefinitely since he is not a good candidate for anticoagulation from now on. GI prophylaxis: Patient on Protonix drip. DVT prophylaxis: SCDs, chemotherapy prophylaxis contraindicated due to high bleeding risk. Discharge Planning If patient becomes hypotensive or unstable then will transfer to intensive care unit. Problem Qualifiers (1) GI bleed: Qualified Code: K62.5 - Gastrointestinal hemorrhage associated with anorectal source (2) Hypotension: Qualified Code: I95.9 - Hypotension, unspecified hypotension type Harvey Mohr MD May 08, 2016 10:28
[2016-05-08 11:25] VITALS: BP 119/56; PULSE 77; RESP 19; TEMP 97.4; O2SAT 96
[2016-05-08 16:00] VITALS: BP 136/69; PULSE 81; RESP 20; TEMP 97.4; O2SAT 97
[2016-05-08 20:53] VITALS: BP 144/68; PULSE 83; RESP 20; TEMP 96.8; O2SAT 97
[2016-05-09 00:20] VITALS: BP 146/69; PULSE 88; RESP 18; TEMP 99; O2SAT 97
[2016-05-09] MEDS: LACTATED RINGER'S 1000 ML IV SCH (02:50)
[2016-05-09] MEDS: PANTOPRAZOLE SODIUM 40 MG VIAL IV PUSH SCH ×2 (02:50→11:30)
[2016-05-09 07:19] LABS: BICARBONATE 21.8 MEQ/L (21.0-32.0); POTASSIUM 3.9 MEQ/L (3.5-5.1)
[2016-05-09 07:41] VITALS: BP 135/66; PULSE 93; RESP 18; TEMP 99.3; O2SAT 96
[2016-05-09 07:46] LABS: HEMATOCRIT 31.2 % (39.0-51.0); MEAN CELL VOLUME 85.8 FL (80.0-100.0); MEAN CORPUSCULAR HEMOGLOBIN 29.2 PG (27.0-34.0); MEAN CORPUSCULAR HGB CONC 34.1 % (32.0-36.0); PLATELET COUNT 119 TH/MM3 (150-450); RED BLOOD COUNT 3.64 MIL/MM3 (4.50-5.90); RED CELL DISTRIBUTION WIDTH 18.5 % (11.6-17.2); REVIEW FLAG FINAL; WHITE BLOOD COUNT 12.6 TH/MM3 (4.0-11.0)
[2016-05-09 11:23] VITALS: BP 136/65; PULSE 100; RESP 20; TEMP 98.4; O2SAT 97
--- NOTE | 2016-05-09 11:40 | HHI.GIFU ---
Subjective Remarks Resting in bed. Tolerating diet. No further signs of bleeding. (ValderramaNicolette Katerynajalen LIU) Objective Vitals I&O Vital Signs Date Time Temp Pulse Resp B/P Pulse Ox O2 Delivery O2 Flow Rate FiO2 05/09/16 11:23 98.4 100 20 136/65 97 05/09/16 07:41 99.3 93 18 135/66 96 05/09/16 00:20 99.0 88 18 146/69 97 05/08/16 20:53 96.8 83 20 144/68 97 05/08/16 16:00 97.4 81 20 136/69 97 I/O 05/08/16 05/08/16 05/08/16 05/09/16 05/09/16 05/09/16 07:00 15:00 23:00 07:00 15:00 23:00 Intake Total 240 ml 600 ml 480 ml 360 ml 120 ml Output Total 800 ml 800 ml 800 ml Balance 240 ml -200 ml -320 ml -440 ml 120 ml Intake Oral 240 ml 600 ml 480 ml 360 ml 120 ml IV Total 0 ml Output Urine Total 800 ml 800 ml 800 ml # Voids 4 # Bowel Movements 1 3 1 1 Laboratory Laboratory Tests Test 05/09/16 05:42 White Blood Count 12.6 Red Blood Count 3.64 Hemoglobin 10.6 Hematocrit 31.2 Mean Corpuscular Volume 85.8 Mean Corpuscular Hemoglobin 29.2 Mean Corpuscular Hemoglobin 34.1 Concent Red Cell Distribution Width 18.5 Platelet Count 119 Mean Platelet Volume 8.2 Hematology Comments Sodium Level 137 Potassium Level 3.9 Chloride Level 103 Carbon Dioxide Level 21.8 Anion Gap 12 Blood Urea Nitrogen 11 Creatinine 0.80 Estimat Glomerular Filtration 91 Rate Random Glucose 113 Calcium Level 7.9 Imaging Last Impressions GI Bleed Scan Nuclear Medicine 05/03/16 0000 Signed Impressions: Service Date/Time: April 13:03 - CONCLUSION: Unremarkable GI bleeding scan. Ulisses Briscoe MD Abdomen Arteriogram 05/02/16 0000 Signed Impressions: Service Date/Time: Monday, May 02, 2016 14:05 - CONCLUSION: 1. Hyperemia in the sigmoid region of the JADA with no findings of active hemorrhage in either the JADA or SMA. 2. Mild atherosclerotic irregularity of the infrarenal abdominal aorta without aneurysmal disease. Adrian Ortiz MD Physical Exam HEENT: Normocephalic; atraumatic; no jaundice. CHEST: CTA CARDIAC: RRR ABDOMEN: Soft, nondistended, nontender; no hepatosplenomegaly; bowel sounds are present in all four quadrants. EXTREMITIES: No clubbing, cyanosis, or edema. SKIN: Multiple ecchymotic areas MYCOLOGY TEACHER: No focal deficits; alert and oriented times three. (Nicolette Valderrama) Assessment and Plan Plan ASSESSMENT: - Lower GI bleed- s/p colonoscopy on (05/01/16)----> Diverticulum in the sigmoid colon and descending colon,significant amount of blood was found in the sigmoid, descending and transverse, most likely diverticular bleed. S/P Angiogram in IR (05/02/16)----> no bleeding identified, bleeding scans negative twice. CRS following. H/H stable at 10.6/31.2. Tolerating diet. No further bleeding. - Medium sized flat polyp in the sigmoid, large flat polyp in the hepatic flexure. Pathology with multiple fragments of tubular adenoma, sigmoid colon tubular adenoma - Acute renal failure- Improving, could be secondary to above Plan: - Okay to d/c home from GI standpoint - Regular diet - Protonix BID dosing - FU EARL 2 weeks - GI will sign off, please reconsult as needed - Pt seen and myself and Dr. Malloy and this note is written on his behalf ( Nicolette Valderrama) Physician Comments patient was seen and examined, agree with above note, will F/U as outpatient. ( Jimbo Malloy MD) Nicolette Valderrama May 09, 2016 11:40 Jimbo Malloy MD May 09, 2016 17:39
--- NOTE | 2016-05-09 13:32 | HHI.PR ---
Subjective Remarks LGI Bleed no further bleeding, comfortable Objective Vital Signs Date Time Temp Pulse Resp B/P Pulse Ox O2 Delivery O2 Flow Rate FiO2 05/09/16 11:23 98.4 100 20 136/65 97 05/09/16 07:41 99.3 93 18 135/66 96 05/09/16 00:20 99.0 88 18 146/69 97 05/08/16 20:53 96.8 83 20 144/68 97 05/08/16 16:00 97.4 81 20 136/69 97 I/O 05/08/16 05/08/16 05/08/16 05/09/16 05/09/16 05/09/16 07:00 15:00 23:00 07:00 15:00 23:00 Intake Total 240 ml 600 ml 480 ml 360 ml 120 ml Output Total 800 ml 800 ml 800 ml Balance 240 ml -200 ml -320 ml -440 ml 120 ml Intake Oral 240 ml 600 ml 480 ml 360 ml 120 ml IV Total 0 ml Output Urine Total 800 ml 800 ml 800 ml # Voids 4 # Bowel Movements 1 3 1 1 Result Diagram: 05/09/16 0542 05/09/16 0542 Objective Remarks Abdomen benign Assessment and Plan Assessment and Plan Tolerating regular diet with no further bleeding Hgb stable OK for discharge per CRS Janet Kc MD May 09, 2016 13:32
--- NOTE | 2016-05-09 13:48 | HHI.DCPOC ---
Discharge Care Plan Diagnosis: (1) GI bleed Your Health Problems Are: Difficulty with ADL Exercise Tolerance Goals to Promote Your Health * To prevent worsening of your condition and complications * To maintain your health at the optimal level Directions to Meet Your Goals Take your medications as prescribed Follow your dietary instruction Follow activity as directed Keep your appointments as scheduled Take your immunizations and boosters as scheduled If your symptoms worsen call your PCP, if no PCP go to Urgent Care Center or Emergency Room Smoking is Dangerous to Your Health. Avoid second hand smoke Call the 24-hour hour crisis hotline for domestic abuse at Estuardo Portillo MD May 09, 2016 13:48
[2016-05-09] MEDS ORDERED: PANT40TA3 PO (13:49)
--- NOTE | 2016-05-09 13:50 | HHI.FF ---
Face to Face Verification Diagnosis: (1) GI bleed Physical Therapy Order: Evaluate and Treat, Improve ambulation, Strength and gait training I have seen patient Kurt Goode on 05/09/16. My clinical findings support the need for the requested home health care services because: Ltd mobility - disease progression I certify that my clinical findings support that this patient is homebound because: Post-op weakness Unsteady gait/balance Estuardo Portillo MD May 09, 2016 13:50
[2016-05-09] MEDS ORDERED: WALKER WHEELS/F1 MIS (13:51)
--- NOTE | 2016-05-09 13:58 | HHI.DS ---
Discharge Summary Admission Date Apr 30, 2016 at 17:14 Discharge Date: May 09, 2016 Admitting Diagnosis GI BLEED (1) GI bleed ICD Code: K92.2 Diagnosis: Principal (2) Dizziness ICD Code: R42 Diagnosis: Principal (3) Leukocytosis ICD Code: D72.829 Diagnosis: Principal (4) BRITTNEY (acute kidney injury) ICD Code: N17.9 Diagnosis: Principal (5) Hyperglycemia ICD Code: R73.9 Diagnosis: Secondary (6) Hyperlipidemia ICD Code: E78.5 Diagnosis: Secondary (7) HTN (hypertension) ICD Code: I10 Diagnosis: Secondary (8) Hypotension ICD Code: I95.9 Diagnosis: Principal (9) H/O: CVA (cerebrovascular accident) ICD Code: Z86.73 Diagnosis: Secondary Procedures Colonoscopy on 05/01/16 - showed diverticulosis, hepatic flexure lesion, sigmoid polyp Abdominal angiogram on 05/02/16 which did not show any bleeding in the SMA, JADA territories. Brief History - From Admission This is an 89-year-old male with history of arthritis, CVA on anticoagulation who presented to the hospital after he started having bright red stools today. There was so much bleeding at home which prompted the family to call EMS. Per patient, he probably lost about 6 cups of blood. He denies any diarrhea, abdominal pain, nausea, vomiting, chest pain, shortness of breath, fever or chills. He however had weakness and dizziness or lightheadedness when he gets up. Patient is a poor historian. Per patient, had a colonoscopy about 8 years ago, he does not know the results. CBC/BMP: 05/09/16 0542 05/09/16 0542 Significant Findings Laboratory Tests Test 05/06/16 05/07/16 05/08/16 05/09/16 18:12 05:26 05:32 05:42 Hemoglobin 8.6 GM/DL 7.4 GM/DL 9.8 GM/DL 10.6 GM/DL (13.0-17.0) (13.0-17.0) (13.0-17.0) (13.0-17.0) Red Blood Count 2.46 MIL/MM3 3.64 MIL/MM3 (4.50-5.90) (4.50-5.90) Hematocrit 21.7 % 31.2 % (39.0-51.0) (39.0-51.0) Red Cell Distribution Width 19.2 % 18.5 % (11.6-17.2) (11.6-17.2) Platelet Count 112 TH/MM3 119 TH/MM3 (150-450) (150-450) Monocytes (%) (Auto) 12.0 % (0.0-8.0) Eosinophils (%) (Auto) 4.9 % (0.0-4.0) Band Neutrophils % 7 % (0-6) Myelocytes 1 % (0-0) Platelet Estimate LOW (NORMAL) Polychromasia 2.9 % (0.0-1.9) Ovalocytes 1+ (NORMAL) Chloride Level 111 MEQ/L (98-107) Random Glucose 112 MG/DL 113 MG/DL (74-106) (74-106) Calcium Level 7.0 MG/DL 7.9 MG/DL (8.5-10.1) (8.5-10.1) Phosphorus Level 2.0 MG/DL (2.5-4.9) Total Protein 4.0 GM/DL (6.4-8.2) Albumin 1.8 GM/DL (3.4-5.0) White Blood Count 12.6 TH/MM3 (4.0-11.0) Imaging Last Impressions GI Bleed Scan Nuclear Medicine 05/03/16 0000 Signed Impressions: Service Date/Time: April 13:03 - CONCLUSION: Unremarkable GI bleeding scan. Ulisses Briscoe MD Abdomen Arteriogram 05/02/16 0000 Signed Impressions: Service Date/Time: Monday, May 02, 2016 14:05 - CONCLUSION: 1. Hyperemia in the sigmoid region of the JADA with no findings of active hemorrhage in either the JADA or SMA. 2. Mild atherosclerotic irregularity of the infrarenal abdominal aorta without aneurysmal disease. Adrian Ortiz MD PE at Discharge GENERAL: This is a well-nourished, well-developed patient, in no apparent distress. SKIN: No rashes, ecchymoses or lesions. Cool and dry. Pale skin. There is a skin tear on the right upper chest and also the shoulder which measures approximately 3 cm 1 cm. Also there is a 32 cm stage II ulcer in the left buttock. HEAD: Atraumatic. Normocephalic. No temporal or scalp tenderness. EYES: Pupils equal round and reactive. Extraocular motions intact. No scleral icterus. No injection or drainage. ENT: Nose without bleeding, purulent drainage or septal hematoma. Throat without erythema, tonsillar hypertrophy or exudate. Uvula midline. Airway patent. NECK: Trachea midline. No JVD or lymphadenopathy. Supple, nontender, no meningeal signs. CARDIOVASCULAR: Regular rate and rhythm without murmurs, gallops, or rubs. RESPIRATORY: Clear to auscultation. Breath sounds equal bilaterally. No wheezes , rales, or rhonchi. GASTROINTESTINAL: Abdomen soft, non-tender, nondistended. Bowel sounds present and normoactive. MUSCULOSKELETAL: Extremities without clubbing, cyanosis, or edema. No joint tenderness, effusion, or edema noted. No calf tenderness. Negative Homans sign bilaterally. NEUROLOGICAL: Awake and alert. Cranial nerves II through XII intact. Motor and sensory grossly within normal limits. Five out of 5 muscle strength in all muscle groups. Normal speech. hard of hearing. Hospital Course (1) GI bleed Plan: This is an 89-year-old male with history of CVA and arthritis on chronic undergo ablation presenting with rectal bleeding. Likely lower GI bleed. Patient had colonoscopy 8 years ago. Patient initially treated with IV Protonix, GI consulted. Patient status post colonoscopy which showed bleeding polyps, diverticulosis. Patient had angiogram on 05/02 due to persistent melena and hematochezia which did not show any active bleeding from the SMA and JADA territories. Status post transfusion of 2 units of proper blood cells after hemoglobin was 6.9. Patient still with active bleeding on 05/03 and had bleeding scan which was unremarkable. Patient is status post transfusion 1 unit of packed red blood cells with appropriate response of hemoglobin up to 8.8. It seems that hemoglobin has been somewhat stable and as per RN report the patient has not had any more episodes of hematochezia. Patient is also status post transfusion of 1 unit of FFP and 2 g of IV calcium chloride. Evaluated by colorectal surgery considered colectomy. At this time patient does not want to go through with surgery and patient is at high risk. The plan is to wait and see if the patient would stop bleeding. Continue to monitor hemoglobin. Hemoglobin stable at 9.8 after transfusion of 2 units of packed blood cells. Continue to monitor hemoglobin. No further GI bleeding. Continue to monitor and observe. Patient on regular diet. Continue Protonix twice a day. (2) Dizziness Plan: Likely due to hypotension secondary to GI bleed. Patient has had hypotension with blood pressure of 99/60 on 05/02/16, treated with IV fluids. (3) Leukocytosis Plan: Leukocytosis likely stress induced to be possibly due to no traveled to margination versus hemoconcentration. The patient has been afebrile without any obvious source of infection. WBC trending down. Continue to monitor CBC with differential. No signs of active infection. Likely secondary to stress due to active bleeding. (4) BRITTNEY (acute kidney injury) Plan: Patient initially with a creatinine of 1.33 and a GFR of 51. BRITTNEY have resolved after IV fluid administration, now with creatinine of 0.9. Resolved after IV fluid and nutrition. (5) Hyperglycemia Plan: No previous history of diabetes. Hemoglobin A1c 5.9. Continue SSI with insulin NovoLog and Accu-Cheks. (6) Hyperlipidemia Plan: Check fasting lipid profile. I will resume statin as soon as GI bleed has been controlled. (7) HTN (hypertension) Plan: As per medical records, the patient has had history of hypertension. Stable blood pressure. (8) Hypotension Plan: Due to hypovolemia. Patient had decreased blood pressure 99/60 on . Resolved (9) H/O: CVA (cerebrovascular accident) Plan: Patient has history of CVA and was on chronic anticoagulation with Coumadin. Hold Coumadin due to GI bleed. The patient's Coumadin will be discontinued indefinitely since he is not a good candidate for anticoagulation from now on. GI prophylaxis: Patient on Protonix DVT prophylaxis: SCDs, chemotherapy prophylaxis contraindicated due to high bleeding risk. Pt Condition on Discharge: Stable Discharge Disposition: Discharge to SNF Discharge Time: > 30 minutes Discharge Instructions DIET: Follow Instructions for: Heart Healthy Diet Activities you can perform: Regular-No Restrictions Activities to Avoid: Driving Follow up Referrals: Gastroenterology - 2 Weeks @ [facility] PCP Follow-up - 1 Week SNF/FCI/HH with [facility] New Medications: Pantoprazole (Pantoprazole) 40 Mg Tab 40 MG PO BID Reflux #60 Ref 0 TAB Walker with Front Wheels (Walker with Front Wheels) 1 Mis Mis 1 EA .ROUTE DIRECTED #1 Ref 0 EA Continued Medications: Simvastatin (Simvastatin) 40 Mg Tab 40 MG PO HS Cholesterol Management #30 Ref 0 TAB Estuardo Portillo MD May 09, 2016 13:58
== END 2016-05-09 16:14 | DRG 378 ==
LOC: NEPA 10:12 → NEDA 12:37 → NEPGCP 14:20 → OBSVTOIN 17:14 → N07A 05-01 00:04
PROVIDERS: ADMIT Internal Medicine; ATTEND Internal Medicine
PROC: 0DBL8ZX Excision of Transverse Colon, Via Natural or Artificial Opening Endoscopic, Diagnostic (ICD-10-PCS; 2016-05-01)
PROC: 30233K1 Transfusion of Nonautologous Frozen Plasma into Peripheral Vein, Percutaneous Approach (ICD-10-PCS; 2016-05-01)
PROC: 30233N1 Transfusion of Nonautologous Red Blood Cells into Peripheral Vein, Percutaneous Approach (ICD-10-PCS; 2016-05-01)
PROC: 0DBN8ZX Excision of Sigmoid Colon, Via Natural or Artificial Opening Endoscopic, Diagnostic (ICD-10-PCS; principal; 2016-05-01 09:40)
PROC: B4151ZZ Fluoroscopy of Inferior Mesenteric Artery using Low Osmolar Contrast (ICD-10-PCS; 2016-05-02)
PROC: B4141ZZ Fluoroscopy of Superior Mesenteric Artery using Low Osmolar Contrast (ICD-10-PCS; 2016-05-02)
DX: K57.31 Diverticulosis of large intestine without perforation or abscess with bleeding (principal); D62 Acute posthemorrhagic anemia; N17.9 Acute kidney failure, unspecified; L89.322 Pressure ulcer of left buttock, stage 2; I95.9 Hypotension, unspecified; E86.1 Hypovolemia; D72.829 Elevated white blood cell count, unspecified; K21.9 Gastro-esophageal reflux disease without esophagitis; D12.3 Benign neoplasm of transverse colon; D12.5 Benign neoplasm of sigmoid colon; E78.5 Hyperlipidemia, unspecified; N18.9 Chronic kidney disease, unspecified; R73.9 Hyperglycemia, unspecified; R42 Dizziness and giddiness; M19.90 Unspecified osteoarthritis, unspecified site; L98.8 Other specified disorders of the skin and subcutaneous tissue; S20.311A Abrasion of right front wall of thorax, initial encounter; S40.211A Abrasion of right shoulder, initial encounter; I10 Essential (primary) hypertension; Z72.0 Tobacco use; Z86.718 Personal history of other venous thrombosis and embolism; Z79.01 Long term (current) use of anticoagulants
CPT/HCPCS: 36245; 36430; 75726; 75774; 76937; 78278; 80048; 80053; 80061; 80076; 81001; 83036; 83735; 84100; 85007; 85014; 85018; 85025; 85027; 85610; 85730; 86850; 86900; 86901; 86920; 86927; 88305; 93005; 96365; 99144; 99145; A9560; C1760; C1769; C1887; C1894; C9113; G0269; J1940; J2250; J3010; J7030; J7050; P9016; P9017; Q9967